=== PATIENT | male | born 1995 | race Two or more races ===

== ENCOUNTER → 2021-01-01 10:52 | Outpatient (BNVA) | payer MEDICARE, MEDICAID, SELFPAY | PROVIDERS: PCP Internal Medicine; Referring Provider Internal Medicine; Visit Provider Nurse Practitioner | DX: Z13.89 Encounter for screening for other disorder (principal) | CPT/HCPCS: Q3014 ==

== ENCOUNTER 2021-01-15 10:39 | Outpatient (REF) | payer MEDICARE, MEDICAID, SELFPAY ==
[2021-01-15 12:29] LABS: Creatinine Urine 299.66 mg/dL; Microalbum/Creatinine Ratio Ur 4.6 ug/mg cr
[2021-01-15 12:33] LABS: Alanine Aminotransferase 22 U/L (0-40); Albumin Level 4.1 g/dL (3.5-5.0); Alkaline Phosphatase 77 U/L (39-117); Anion Gap 12 (12-20); Aspartate Amino Transferase 17 U/L (5-37); Bilirubin Total 0.6 mg/dL (0.0-1.0); Blood Urea Nitrogen 13 mg/dL (9-16); Calcium 9.1 mg/dL (8.4-10.2); Carbon Dioxide 28 mmol/L (22-29); Chloride 101 mmol/L (96-108); Cholesterol 145 mg/dL; Estimated Glomerular Filt Rate > 60; Glucose Fasting 126 mg/dL (60-99); HDL Cholesterol 38 mg/dL; LDL Cholesterol Calculated 94 mg/dl; Potassium 4.8 mmol/L (3.3-5.1); Sodium 136 mmol/L (135-145); Triglycerides 68 mg/dL
[2021-01-15 13:01] LABS: Reflex LDLD? No
[2021-01-15 13:59] LABS: Estimated Average Glucose 148 mg/dL; Hemoglobin A1c % 6.8 %
== END 2021-01-15 10:40 | disposition home or self-care (01) ==
LOC: HO.10HDL 10:39
PROVIDERS: Absent Provider Nurse Practitioner Gerontology; Visit Provider Internal Medicine
DX: E11.9 Type 2 diabetes mellitus without complications (principal); E78.5 Hyperlipidemia, unspecified
CPT/HCPCS: 36415; 80053; 80061; 82043; 83036

== ENCOUNTER → 2021-01-18 14:09 | Outpatient (REF) | payer MEDICARE, MEDICAID, SELFPAY ==
--- NOTE | 2021-01-18 14:16 | ECG_ITS ---
Test Reason : HIGH RISK MEDICATION Blood Pressure : / mmHG Vent. Rate : 078 BPM Atrial Rate : 078 BPM P-R Int : 186 ms QRS Dur : 080 ms QT Int : 342 ms P-R-T Axes : 058 077 041 degrees QTc Int : 389 ms Normal sinus rhythm Normal ECG When compared to the previous EKG of No significant changes seen Referred By: Vipin Morgan Electronically Signed By:PRIETO AUSTIN MD
== END ==
LOC: HO.CARD 14:09
PROVIDERS: PCP Internal Medicine; Visit Provider Psychiatry & Neurology Child & Adolescent Psychiatry
DX: Z79.899 Other long term (current) drug therapy (principal)
CPT/HCPCS: 93005

== ENCOUNTER → 2021-01-22 10:05 | Outpatient (BNVA) | payer MEDICARE, MEDICAID, SELFPAY | PROVIDERS: PCP Internal Medicine; Visit Provider Nurse Practitioner Gerontology | DX: E11.9 Type 2 diabetes mellitus without complications (principal); E66.01 Morbid (severe) obesity due to excess calories; I10 Essential (primary) hypertension | CPT/HCPCS: 82947; 99212 ==

== ENCOUNTER → 2021-04-17 09:58 | Outpatient (BNVA) | payer MEDICARE, MEDICAID, SELFPAY | PROVIDERS: PCP Internal Medicine; Visit Provider Dietitian, Registered | DX: E11.9 Type 2 diabetes mellitus without complications (principal) | CPT/HCPCS: 97803 ==

== ENCOUNTER → 2021-06-18 10:41 | Outpatient (BNVA) | payer MEDICARE, MEDICAID, SELFPAY | PROVIDERS: PCP Internal Medicine; Visit Provider Dietitian, Registered | DX: E11.9 Type 2 diabetes mellitus without complications (principal) | CPT/HCPCS: 97803 ==

== ENCOUNTER → 2021-07-25 10:17 | Outpatient (BNVA) | payer MEDICARE, MEDICAID, SELFPAY | PROVIDERS: PCP Internal Medicine; Visit Provider Nurse Practitioner Gerontology | DX: E11.9 Type 2 diabetes mellitus without complications (principal); I10 Essential (primary) hypertension; E66.01 Morbid (severe) obesity due to excess calories; Z68.42 Body mass index [BMI] 45.0-49.9, adult | CPT/HCPCS: 82947; 83036; 99212 ==

== ENCOUNTER → 2021-09-18 10:26 | Outpatient (BNVA) | payer MEDICARE, MEDICAID, SELFPAY | PROVIDERS: PCP Internal Medicine; Visit Provider Dietitian, Registered | DX: E11.9 Type 2 diabetes mellitus without complications (principal); I10 Essential (primary) hypertension; E78.00 Pure hypercholesterolemia, unspecified; E66.09 Other obesity due to excess calories; Z68.42 Body mass index [BMI] 45.0-49.9, adult; Z88.2 Allergy status to sulfonamides; Z88.8 Allergy status to other drugs, medicaments and biological substances; Z91.011 Allergy to milk products; Z71.3 Dietary counseling and surveillance | CPT/HCPCS: 97803 ==

== ENCOUNTER 2021-11-14 14:18 | Outpatient (REF) | payer MEDICARE, MEDICAID, SELFPAY ==
--- NOTE | 2021-11-14 15:24 | MHC.AU.MED ---
Medical Clearance for Hearing Instrumentation Date: 11/14/21 Patient Name: Paul Monk Date of : 1995 Referring Provider: EDMOND Clark We have seen your patient on 11/14/21 and have determined that they are a candidate for amplification (See accompanying report). Specifically, they would benefit from: Hearing aid use in both ears There is a statute that addresses Medical Evaluation Requirements prior to fitting a patient with a hearing aid. According to [place] statute 265 CMR:6.03(1), (a) General. Except as provided in 265 CMR 6.03(1)(b), a musical therapist shall not sell a hearing aid unless the prospective user has presented to the musical therapist a written statement signed by a licensed physician that states that the patient's hearing loss has been medically evaluated and the patient may be considered a candidate for a hearing aid. The medical evaluation must have taken place within the preceding six months. Please note: Due to the [place] Statute referenced above, we cannot accept a signature other than that of a licensed physician. PATIENT CARE ASSISTANT and PA signatures cannot be accepted. I am in agreement with the above recommendation. There is no medical contraindication for hearing instrumentation. Physician Signature Date Physician Name (Printed)
--- NOTE | 2021-11-14 15:25 | MHC.AU.AHA ---
Adult Audiological Evaluation Date of Visit: 11/14/21 Reason for Appointment: History of mild to moderate sensorineural hearing loss. Patient arrives today to determine if there has been a change in hearing. Patient reports that his hearing aids were recently lost. Previous Hearing Test Results: At this clinic in 2016- Mild to moderate sensorineural hearing loss bilaterally Ear History: Ear Deformity: None Reported Recent Ear Drainage: None Reported Recent Ear Pain: Both Ears Family History of Hearing Loss?: No Recent Ear Infections: None Reported Ear Infections in Childhood: Both Ears History of Ear Wax Buildup: None Reported Previous Ear Surgery: None Reported Ear used on the phone: Right Ear History of occupational noise exposure?: No History: No Medical History: Medical History: Hypertension, Diabetes, Asthma, Autism Spectrum Disorder, Bipolar Disorder, ADHD Otoscopy: Right Ear: Unremarkable Left Ear: Unremarkable Tympanometry: Tympanometry performed due to: To assess integrity of the middle ear system Right Ear: Positive Middle Ear Pressure, with Normal Compliance Left Ear: Normal Middle Ear System (Type A) Hearing Evaluation: Transducer(s) Used: Insert Earphones Method: Conventional Audiometry Stimuli Used: Pure Tones Right Ear: Description of Hearing: Mild to moderate sensorineural hearing loss Left Ear: Description of Hearing: Mild to moderate sensorineural hearing loss Speech Recognition Threshold (SRT): Method Used: Recorded Lists Stimuli Used: Spondee Words Right Ear: 35 dBHL Left Ear: 35 dBHL Word Discrimination: Method: Recorded Lists Word Lists Used: W-22 Right Ear: 100% at 75 dBHL Left Ear: 96% at 75 dBHL Most Comfortable Level (MCL): Right Ear: 75 dBHL Left Ear: 75 dBHL Comparison: Compared to the most recent evaluation: Thresholds have decreased bilaterally. Interpretation of Results: Mild to moderate sensorineural hearing loss bilaterally. Hearing has slightly decreased since last evaluation in 2016. In the right ear, positive middle ear pressure is present. Recommendations: Audiological re-evaluation in one year. See Hearing Aid Evaluation report for more information. Follow-up with PCP may be warranted to address positive middle ear pressure in the right ear. Diagnosis: Primary Diagnosis: H90.3 Bilateral Sensorineural Hearing Loss Signature: Provider: Selvin Dumont, [facility]
--- NOTE | 2021-11-14 15:30 | MHC.AU.HAS ---
Hearing Aid Evaluation Date of Visit: 11/14/21 Historical Information: Description of Hearing: Mild to moderate sensorineural hearing loss bilaterally Summary: Patient was seen for audiological evaluation (see separate report for details). He previously used a pair of Phonak Audeo B50-R, dispensed in 2016. Patient reports that the hearing aids were recently lost. Hearing aid options were discussed. Patient would like to stay with a rechargeable model for ease of use. Hearing Aid Prescription: Based on the individual?s shared listening needs, communication environments, dexterity, desire for connectivity, and personal preferences, the following prescription for amplification has been made: Right ear: Pot Room Tapper: Phonak Model: Audeo P70-R Battery Size: Rechargeable Color: P8 Manager Cosmetics: 0M Left ear: Pot Room Tapper: Phonak Model: Audeo P70-R Battery Size: Rechargeable Color: P8 Manager Cosmetics: 0M Action Taken/Action Needed: Medical Clearance to be requested from PCP/ENT Patient will be contacted to schedule hearing aid fitting when all materials have arrived. Primary Diagnosis: H90.3 Bilateral Sensorineural Hearing Loss Signature: Provider: Selvin Dumont, [facility]
== END 2021-11-14 14:19 | disposition home or self-care (01) ==
LOC: HO.SH 14:18
PROVIDERS: Visit Provider Nurse Practitioner Family
DX: H90.3 Sensorineural hearing loss, bilateral (principal)
CPT/HCPCS: 92557; 92567; 92591

== ENCOUNTER 2021-12-06 10:39 | Outpatient (REF) | payer MEDICARE, MEDICAID, SELFPAY ==
--- NOTE | 2021-12-06 11:26 | MHC.AU.HFA ---
Hearing Instrument Fitting- Adult- Binaural Date of Visit: 12/06/21 Hearing Instruments Dispensed: Right Ear: Hairspring Cutter: Phonak Model: Audeo P70-R Serial Number: [id number] Repair Warranty: 02/16/2025 Loss and Damage Warranty: 02/16/2025 Service Plan: 12/06/2022 Battery Size: Rechargeable Color: P8 Tar Distributor Operator: 0M Type of Dome: Small Open Type of Wax Guard: CeruShield Left Ear: Hairspring Cutter: Phonak Model: Audeo P70-R Serial Number: [id number] Repair Warranty: 02/16/2025 Loss and Damage Warranty: 02/16/2025 Service Plan: 12/06/2022 Battery Size: Rechargeable Color: P8 Tar Distributor Operator: 0M Type of Dome: Small Open Type of Wax Guard: CeruShield Summary of Fitting: Feedback servicing manager run. Verifit performed and levels adjusted to better reach targets. Target gain at 100%. Patient was pleased with the sound of the instruments. Hearing aid care and maintenance discussed and practiced. Hearing aids paired to patient's phone and rodger. Recommendations: Recommendations: Patient is an experienced hearing aid user. He will call if follow-up is needed. Diagnosis Code(s): Primary Diagnosis: H90.3 Bilateral Sensorineural Hearing Loss Signature: Provider: Selvin Dumont, [facility]
== END 2021-12-06 10:40 | disposition home or self-care (01) ==
LOC: HO.HAP 10:39
PROVIDERS: Visit Provider Internal Medicine
DX: Z46.1 Encounter for fitting and adjustment of hearing aid (principal); H90.3 Sensorineural hearing loss, bilateral
CPT/HCPCS: V5011; V5020; V5160; V5261

== ENCOUNTER → 2022-01-04 11:55 | Outpatient (BNVA) | payer MEDICARE, MEDICAID, SELFPAY | PROVIDERS: PCP Internal Medicine; Visit Provider Nurse Practitioner | DX: K64.9 Unspecified hemorrhoids (principal); K59.04 Chronic idiopathic constipation; F84.0 Autistic disorder | CPT/HCPCS: 99212 ==

== ENCOUNTER 2022-01-10 08:01 | Outpatient (REF) | payer MEDICARE, MEDICAID, SELFPAY ==
[2022-01-10 08:21] LABS: MANUAL DIFF FLAG NO
[2022-01-10 08:47] LABS: Basophils Percent Auto 0.4 % (0-2); Eosinophils Absolute Auto 0.2 X10*3/uL (0.0-0.4); Eosinophils Percent Auto 1.6 % (0-4); Hematocrit 39.2 % (42.0-52.0); Hemoglobin 11.7 g/dl (14.0-18.0); Imm Gran Abs Auto 0.04 X10*3/uL (0.00-0.03); Imm Gran Pct Auto 0.4 % (0.0-0.4); Lymphocytes Absolute Auto 2.6 X10*3/uL (1.2-4.9); Lymphocytes Percent Auto 23.3 % (20-40); Mean Corpuscular HGB Conc 29.8 g/dl (31.0-36.0); Mean Corpuscular Hemoglobin 22.9 pg (27.0-33.0); Mean Corpuscular Volume 76.9 fL (80.0-98.0); Mean Platelet Volume 10.3 fL (9.4-12.4); Monocytes Absolute Auto 0.8 X10*3/uL (0.1-1.2); Monocytes Percent Auto 7.4 % (2-11); Neutrophils Absolute Auto 7.3 x10*3/uL (2.0-8.3); Neutrophils Percent Auto 66.9 % (45-73); Platelet Count 283 X10*3/uL (160-400); Red Cell Distribution Width 16.3 % (11.0-16.0)
[2022-01-10 08:58] LABS: INTERNATIONAL NORM RATIO 1.1 (0.9-1.1); Prothrombin Time 12.5 SEC (9.9-13.0)
[2022-01-10 10:06] LABS: Microalbum/Creatinine Ratio Ur 6.1 ug/mg cr
[2022-01-10 10:28] LABS: Alanine Aminotransferase 17 U/L (0-40); Albumin Level 4.2 g/dL (3.5-5.0); Alkaline Phosphatase 68 U/L (39-117); Anion Gap 14 (12-20); Aspartate Amino Transferase 18 U/L (5-37); Bilirubin Total 0.5 mg/dL (0.0-1.0); Blood Urea Nitrogen 13 mg/dL (9-16); Calcium 10.3 mg/dL (8.4-10.2); Carbon Dioxide 29 mmol/L (22-29); Chloride 102 mmol/L (96-108); Cholesterol 145 mg/dL; Estimated Glomerular Filt Rate > 60; Glucose Fasting 94 mg/dL (60-99); HDL Cholesterol 44 mg/dL; Iron 33 mcg/dL (45-160); LDL Cholesterol Calculated 91 mg/dl; Percent Iron Saturation 7 % (15-50); Potassium 4.9 mmol/L (3.3-5.1); Sodium 140 mmol/L (135-145); Total Iron Binding Capacity 444 mcg/dL (228-428); Total Protein 7.8 g/dL (6.5-8.0); Triglycerides 53 mg/dL; Unsaturated Iron Binding 411 ug/dL
[2022-01-10 10:29] LABS: Vitamin B12 679 pg/mL (200-900)
== END 2022-01-10 08:02 | disposition home or self-care (01) ==
LOC: HO.LAB 08:01
PROVIDERS: Absent Provider Internal Medicine; PCP Internal Medicine; Visit Provider Nurse Practitioner Gerontology
DX: R04.0 Epistaxis (principal); D64.9 Anemia, unspecified; E11.9 Type 2 diabetes mellitus without complications
CPT/HCPCS: 36415; 80053; 80061; 82043; 82607; 83540; 85025; 85610; 85730

== ENCOUNTER → 2022-01-21 12:55 | Outpatient (BNVA) | payer MEDICARE, MEDICAID, SELFPAY | PROVIDERS: PCP Internal Medicine; Referring Provider Internal Medicine; Visit Provider Nurse Practitioner | DX: K59.04 Chronic idiopathic constipation (principal); K64.9 Unspecified hemorrhoids; F84.0 Autistic disorder; Z88.2 Allergy status to sulfonamides; Z88.8 Allergy status to other drugs, medicaments and biological substances; Z91.011 Allergy to milk products | CPT/HCPCS: 99212 ==

== ENCOUNTER → 2022-01-23 10:13 | Outpatient (BNVA) | payer MEDICARE, MEDICAID, SELFPAY | PROVIDERS: PCP Internal Medicine; Visit Provider Nurse Practitioner Gerontology | DX: E11.9 Type 2 diabetes mellitus without complications (principal); I10 Essential (primary) hypertension; E66.01 Morbid (severe) obesity due to excess calories; Z68.41 Body mass index [BMI] 40.0-44.9, adult | CPT/HCPCS: 82947; 83036; 99212 ==

== ENCOUNTER 2022-01-28 10:43 | Emergency (ER) | payer MEDICARE, MEDICAID, SELFPAY ==
--- NOTE | ~2022-01-28 | XR_ITS ---
EXAMINATION: XR ABDOMEN KUB CLINICAL INDICATION: Constipation COMPARISON: None TECHNIQUE: AP view of the abdomen. FINDINGS: There is stool seen throughout the colon suggestive of constipation. There are no dilated loops of bowel. There is no evidence of free air. No calcifications are seen. There is sacralization of the right L5 transverse process. XR/XR KUB IMPRESSION: Constipation.
[2022-01-28 11:30] VITALS: BP 126/78; PULSE 107; RESP 16; TEMP 37.1; O2SAT 97; BMI 42.9
--- NOTE | 2022-01-28 15:05 | ED.GENADULT ---
HPI - General Adult General Chief complaint: General Medical Stated complaint: CONSTIPATION Time Seen by Provider: 01/28/22 14:59 Source: patient and other (care home staff) Mode of arrival: ambulatory Limitations: no limitations History of Present Illness HPI narrative: Patient comes to the emergency room complaining of constipation. Patient states that he has not moved his bowels for 5 days. Patient is already on senna, MiraLax. Patient denies any abdominal pain, patient states he feels more like rectal pressure, no pain. Patient also states that he has had some rectal bleeding when he wipes after pushing hard trying to move his bowels. Patient states that he has history of hemorrhoids Related Data Home Medications Medication Instructions Recorded Confirmed haloperidol 10 mg tablet 10 mg PO BID 08/23/20 01/08/22 fluoxetine 40 mg capsule 40 mg PO cap 01/22/21 01/08/22 benztropine 0.5 mg tablet 0.5 mg PO BID 10/19/21 01/08/22 divalproex 500 mg tablet,delayed 1,000 mg PO QID 10/19/21 01/08/22 release (Depakote) divalproex 500 mg tablet,delayed 500 mg PO QID tab 10/19/21 01/08/22 release (Depakote) lithium carbonate 150 mg capsule 450 mg PO BID cap 10/19/21 01/08/22 Previous Rx's Medication Instructions Recorded atorvastatin 20 mg tablet 20 mg PO DAILY 90 Days #90 tab 07/04/21 sitagliptin 100 mg tablet (Januvia) 100 mg PO DAILY #30 tab 08/21/21 acetaminophen 500 mg tablet 1,000 mg PO Q6H PRN 30 Days #30 tab 10/10/21 albuterol sulfate 90 mcg/actuation 2 puff INHALATION Q6H PRN 30 Days 10/10/21 aerosol inhaler #6.7 g dextromethorphan-guaifenesin 20 1 tab PO Q6H PRN 30 Days #50 tab 10/10/21 mg-400 mg tablet (Chest Congestion-Cough Relief) ibuprofen 600 mg tablet 600 mg PO TID PRN 30 Days #90 tab 10/10/21 ondansetron 4 mg disintegrating 4 mg PO Q8H PRN 30 Days #90 tab 10/10/21 tablet ferrous sulfate 325 mg (65 mg 325 mg PO BID 30 Days #60 tab 12/11/21 iron) tablet lisinopril 5 mg tablet 5 mg PO QAM #30 tab 12/11/21 metformin 500 mg tablet,extended 1,000 mg PO DAILY 30 Days #60 tab 12/11/21 release 24 hr oxymetazoline 0.05 % nasal mist 2 spray INTRANASAL BID PRN 3 Days 12/11/21 (Afrin (oxymetazoline)) #15 ml montelukast 10 mg tablet 10 mg PO BEDTIME #30 tab 12/25/21 docusate sodium 100 mg capsule 100 mg PO BID #60 cap 12/27/21 sennosides 8.6 mg tablet (Natural 17.2 mg PO DAILY PRN 30 Days #60 12/27/21 Senna Laxative) tab doxycycline hyclate 100 mg tablet 100 mg PO BID 7 Days #14 tab 01/08/22 fluticasone propionate 50 1 spray INTRANASAL DAILY #100 ml 01/08/22 mcg/actuation nasal spray,suspension (Flonase Allergy Relief) hydrocortisone 2.5 % topical cream 1 appl WA TID #30 g 01/21/22 with perineal applicator linaclotide 145 mcg capsule 145 mcg PO QAM #30 cap 01/21/22 (Linzess) polyethylene glycol 3350 17 17 g PO .qhs PRN 30 Days #510 g 01/21/22 gram/dose oral powder (Miralax) blood sugar diagnostic (Contour 1 strip MISCELLANEOUS BID #100 01/22/22 Next Test Strips) strip lancets 28 gauge (TRUEplus Lancets) 1 gauge MISCELLANEOUS BID #100 cap 01/22/22 lactulose 10 gram/15 mL (15 mL) 10 g (15 mL) PO DAILY PRN #600 ml 01/28/22 oral solution Allergies Allergy/AdvReac Type Severity Reaction Status Date / Time sulfamethoxazole Allergy Mild Hives Verified 01/23/22 10:25 [From Septra] amphetamine [From ADDERALL] Allergy Unknown UNKNOWN Verified 01/23/22 10:25 dextroamphetamine Allergy Unknown UNKNOWN Verified 01/23/22 10:25 [From ADDERALL] lactose [LACTOSE] Allergy Unknown UNKNOWN Verified 01/23/22 10:25 sertraline [From ZOLOFT] Allergy Unknown UNKNOWN Verified 01/23/22 10:25 Sulfa (Sulfonamide Allergy Unknown hives Verified 01/23/22 10:25 Antibiotics) [SULFA(SULFONAMIDE ANTIBIOTICS)] trimethoprim [From BACTRIM] Allergy Unknown UNKNOWN Verified 01/23/22 10:25 Review of Systems Review of Systems: Constitutional : No Weight loss, No Fever, No Chills, No Night Sweats, No Fatigue, No Malaise ENT/Mouth : No Hearing loss, No Ear Pain, No Nasal Congestion, No Sinus Pain, No Hoarseness, No sore throat, No Rhinorrhea, No Swallowing Difficulty Eyes: No Eye Pain, No Swelling, No Redness, No Foreign Body, No Discharge, No Vision Changes Cardiovascular : No Chest Pain, No SOB, No Dyspnea on Exertion, No Orthopnea, No Edema, No Palpitations Respiratory : No Cough, No Sputum, No Wheezing, No Smoke Exposure, No Dyspnea Gastrointestinal : No Nausea, No Vomiting, No Diarrhea, complaining of chronic Constipation, occasional external hemorrhoid bleed, No abdominal Pain, No Hematochezia, No Melena Genitourinary : no irregular bleeding, No Dysuria, No Urinary Frequency, No Hematuria, No Urinary Incontinence, No Urgency, No Flank Pain, No Urinary Flow Changes, No Hesitancy Musculoskeletal : No joint pain, No Myalgias, No Joint Swelling Skin : No Skin Lesions, No rash Neuro : No Weakness, No Numbness, No Paresthesias, No Loss of Consciousness, No Dizziness, No Headache Psych : No Anxiety/Panic, No Depression, No SI/HI/AH/VH, No Social Issues, Heme/Lymph: No Bruising, No Bleeding,No Lymphadenopathy Endocrine : No Polyuria, No Polydipsia, No Temperature Intolerance PMFSH Past Medical History Medical History Constipation by delayed colonic transit Controlled diabetes mellitus without complication, without long-term current use of insulin Diabetes mellitus type 2, controlled, without complications Essential hypertension Male circumcision Nosebleed Obesity due to excess calories Pure hypercholesterolemia Surgical History History of appendectomy Hx of circumcision (~2020) Family History Family History Father No problems noted. Mother Asthma Depression Anxiety Heart problem Maternal Grandmother Diabetes Hypertension Family/Other FH: mental illness Social History Social History Household Members: Other Housing: Other (care home) Alcohol intake: never Patient Tobacco Use Status: Never used Tobacco e-Cigarette/Vaping Use: Never Used Second Hand Smoke Exposure: No Advance Directives: No Advance Directives Information Provided: No service: No Current occupational status: disabled Cognitive needs: No Hearing needs: Yes (hearing aide) Vision needs: Yes (glasses) Physical Exam ED Vital Signs: Vital Signs - 24 hr 01/28/22 11:30 01/28/22 15:06 Temperature 98.7 F 97.7 F Pulse Rate 107 H 103 H Respiratory Rate 16 22 H Blood Pressure 126/78 135/87 Pulse Oximetry 97 97 BMI result Body Mass Index 42.9 Course Course Course Narrative: Patient is well-appearing, KUB shows constipation. Patient will be given a prescription for lactulose since he already has tried multiple medications for constipation without any good results. Medical Decision Making Lab Data Labs: Lab Results 01/28/22 Range/Units 15:03 POC Glucose 128 H (60-115) mg/dL Discharge Plan Discharge Clinical Impression: Constipation Patient Disposition: Home, Self-Care Instructions: Constipation (ED) Additional Instructions: Please follow-up with your primary care physician tomorrow. If you have any worsening or new symptoms, please return to the emergency room or call 911 Prescriptions: New lactulose 10 gram/15 mL (15 mL) solution 10 g PO DAILY PRN (Reason: constipation) Qty: 600 0RF No Action atorvastatin 20 mg tablet 20 mg PO DAILY 90 Days Qty: 90 4RF Januvia 100 mg tablet 100 mg PO DAILY Qty: 30 4RF albuterol sulfate 90 mcg/actuation HFA aerosol inhaler 2 puff inhalation Q6H PRN (Reason: shortness of breath or wheezing) 30 Days Qty: 6.7 8RF acetaminophen 500 mg tablet 1,000 mg PO Q6H PRN (Reason: pain or fever) 30 Days Qty: 30 11RF ibuprofen 600 mg tablet 600 mg PO TID PRN (Reason: pain) 30 Days Qty: 90 11RF ondansetron 4 mg tablet,disintegrating 4 mg PO Q8H PRN (Reason: nausea and vomiting) 30 Days Qty: 90 0RF dextromethorphan-guaifenesin [Chest Congestion-Cough Relief] 20-400 mg tablet 1 tab PO Q6H PRN (Reason: cough) 30 Days Qty: 50 8RF montelukast 10 mg tablet 10 mg PO BEDTIME Qty: 30 5RF sennosides [Natural Senna Laxative] 8.6 mg tablet 17.2 mg PO DAILY PRN (Reason: constipation) 30 Days Qty: 60 4RF docusate sodium 100 mg capsule 100 mg PO BID Qty: 60 4RF Contour Next Test Strips Strip 1 strip miscellaneous BID Qty: 100 11RF lancets [TRUEplus Lancets] 28 gauge misc 1 gauge miscellaneous BID Qty: 100 11RF haloperidol 10 mg tablet 10 mg PO BID 0RF fluoxetine 40 mg capsule 40 mg PO 0RF benztropine 0.5 mg tablet 0.5 mg PO BID 0RF lithium carbonate 150 mg capsule 450 mg PO BID 0RF divalproex [Depakote] 500 mg tablet,delayed release (DR/EC) 500 mg PO QID 0RF divalproex [Depakote] 500 mg tablet,delayed release (DR/EC) 1,000 mg PO QID 0RF Rx Instructions: Pt is on Depakote 1,000 mg at bedtime and Depakote 500 mg in the AM lisinopril 5 mg tablet 5 mg PO QAM Qty: 30 1RF metformin 500 mg tablet extended release 24 hr 1,000 mg PO DAILY 30 Days Qty: 60 1RF ferrous sulfate 325 mg (65 mg iron) tablet 325 mg PO BID 30 Days Qty: 60 1RF Afrin (oxymetazoline) 0.05 % mist 2 spray intranasal BID PRN (Reason: nasal congestion) 3 Days Qty: 15 0RF fluticasone propionate [Flonase Allergy Relief] 50 mcg/actuation spray,suspension 1 spray intranasal DAILY Qty: 100 0RF Rx Instructions: administer into each nostril doxycycline hyclate 100 mg tablet 100 mg PO BID 7 Days Qty: 14 0RF Linzess 145 mcg capsule 145 mcg PO QAM Qty: 30 6RF polyethylene glycol 3350 [Miralax] 17 gram/dose powder 17 g PO .qhs PRN (Reason: constipation) 30 Days Qty: 510 6RF Rx Instructions: Mix Polyethylene with any 4-8oz of fluid until completely dissolved and then administer. Administer if no BM for 72 hours 17g in water and may repeat x2 in 24 hours. If no BM in 7 days contact prescriber hydrocortisone 2.5 % cream with perineal applicator 1 appl WA TID Qty: 30 6RF
[2022-01-28 15:06] VITALS: BP 135/87; PULSE 103; RESP 22; TEMP 36.5; O2SAT 97
[2022-01-28 15:11] LABS: Glucose, Whole Blood 128 mg/dL (60-115)
== END 2022-01-28 16:35 | disposition home or self-care (01) ==
PROVIDERS: Emergency Provider Emergency Medicine; PCP Internal Medicine
DX: K59.00 Constipation, unspecified (principal); E11.9 Type 2 diabetes mellitus without complications; I10 Essential (primary) hypertension; E78.5 Hyperlipidemia, unspecified; Z79.899 Other long term (current) drug therapy; Z79.02 Long term (current) use of antithrombotics/antiplatelets
CPT/HCPCS: 74018; 82947; 99283

== ENCOUNTER → 2022-03-21 16:17 | Outpatient (BNVA) | payer MEDICARE, MEDICAID, SELFPAY | PROVIDERS: PCP Internal Medicine; Referring Provider Internal Medicine; Visit Provider Nurse Practitioner | DX: K59.04 Chronic idiopathic constipation (principal); K61.1 Rectal abscess | CPT/HCPCS: 99212 ==

== ENCOUNTER → 2022-03-27 15:24 | Outpatient (BNVA) | payer MEDICARE, MEDICAID, SELFPAY | PROVIDERS: PCP Internal Medicine; Referring Provider Internal Medicine; Visit Provider Surgery | DX: K61.0 Anal abscess (principal) | CPT/HCPCS: 99202 ==

== ENCOUNTER → 2022-04-08 16:35 | Outpatient (BNVA) | payer MEDICARE, MEDICAID, SELFPAY | PROVIDERS: PCP Internal Medicine; Visit Provider Nurse Practitioner | DX: K61.0 Anal abscess (principal); K59.04 Chronic idiopathic constipation; R15.9 Full incontinence of feces | CPT/HCPCS: 99212 ==

== ENCOUNTER 2022-04-26 11:00 | Day surgery (SDC) | payer MEDICARE, MEDICAID, SELFPAY ==
[2022-04-18 15:23] VITALS: BMI 41.3
--- NOTE | 2022-04-24 14:53 | HO.ANESPROP2 ---
Documented by User: Lashonda Lala NP 04/24/22 14:56 HPI - Anesthesia Eval Consult details Narrative: 26yo M for EUA,I&D Perianal Abscess *Multiple Med Allergies* care home resident [facility] Active Problems Active Problems: All Active Problems (Updated 04/18/22 @ 14:30 by Shea Carbajal RN) Pure hypercholesterolemia (Acute) Hemorrhoids (Acute) Diabetes mellitus type 2, controlled, without complications (Acute) Bleeding hemorrhoids (Acute) Bipolar disorder (Acute) History of impulsive behavior (Acute) ADHD (Acute) Asthma (Acute) Autism (Acute) HTN (hypertension), benign (Acute) Essential hypertension (Acute) Controlled diabetes mellitus without complication, without long-term current use of insulin (Acute) Vomiting (Acute) Obesity due to excess calories (Acute) Nosebleed (Acute) Epistaxis (Acute) Hearing loss (Acute) Physical exam (Acute ~10/19/21) Epistaxis (Acute) Chronic idiopathic constipation (Acute) Rhinitis (Acute) Ingrown toenail of both feet (Acute) Perirectal abscess (Acute) Bipolar disorder (Acute) Psychosis (Acute) Perianal abscess (Acute) Fecal incontinence (Acute) Past Medical History Medical History ADHD Asthma Autism Bipolar disorder Chronic idiopathic constipation Diabetes mellitus type 2, controlled, without complications Essential hypertension Lives in senior living Male circumcision Pure hypercholesterolemia Family History Family History Father No problems noted. Mother Asthma Depression Anxiety Heart problem Maternal Grandmother Diabetes Hypertension Family/Other FH: mental illness Surgical History Surgical History History of appendectomy Hx of circumcision (~2020) Social History Social History Household Members: Other Household Members Other:: senior living residents/staff Housing: Other Are you a primary field care coordinator to a significant other at home: No Do you presently have visiting nurse or other home services: No Alcohol intake: never Patient Tobacco Use Status: Never used Tobacco e-Cigarette/Vaping Use: Never Used Second Hand Smoke Exposure: No Use of substances other than those prescribed or required for medical reasons: No Are you DNR?: No Advance Directives: No Advance Directives Information Provided: Yes (brochure mailed) Advance Directives on File: No Recently lost weight without trying: No Eating poorly because of decreased appetite: No Nutrition Risks: No Nutritional Risk service: No Current occupational status: disabled Cognitive needs: No Hearing needs: Yes (hearing aide) Vision needs: Yes (glasses) Meds Allergies Allergy/AdvReac Type Severity Reaction Status Date / Time Sulfa (Sulfonamide Allergy Intermediate hives Verified 04/18/22 10:35 Antibiotics) [SULFA(SULFONAMIDE ANTIBIOTICS)] trimethoprim [From BACTRIM] Allergy Intermediate Hives Verified 04/18/22 10:35 amphetamine [From ADDERALL] Allergy Unknown UNKNOWN Verified 04/08/22 16:41 dextroamphetamine Allergy Unknown UNKNOWN Verified 04/08/22 16:41 [From ADDERALL] lactose [LACTOSE] Allergy Unknown UNKNOWN Verified 04/08/22 16:41 sertraline [From ZOLOFT] Allergy Unknown UNKNOWN Verified 04/08/22 16:41 Home Medications Medication Instructions Recorded Confirmed Last Taken Type haloperidol 10 mg tablet 10 mg PO BID 08/23/20 04/18/22 Unknown History fluoxetine 40 mg capsule 40 mg PO DAILY 01/22/21 04/18/22 Unknown History benztropine 0.5 mg tablet 0.5 mg PO BID 10/19/21 04/18/22 Unknown History divalproex 500 mg tablet,delayed 1,000 mg PO QID 10/19/21 04/18/22 Unknown History release (Depakote) divalproex 500 mg tablet,delayed 500 mg PO QID 10/19/21 04/18/22 Unknown History release (Depakote) lithium carbonate 150 mg capsule 450 mg PO BID 10/19/21 04/18/22 Unknown History Exam Exam Date and Time: April 24, 2022 1453 Height,Weight and Vital Signs: Height 5 ft 6 in Weight 116 kg Pertinent Lab Results Pertinent Lab Results: Laboratory Tests 01/10/22 01/10/22 08:20 08:20 WBC 11.0 H Hgb 11.7 L Hct 39.2 L Plt Count 283 Sodium 140 Potassium 4.9 Chloride 102 Carbon Dioxide 29 BUN 13 Creatinine 0.81 Assessment and Plan Assessment Anesthesia Assessment: Chart Reviewed Documented by User: Ana Cummings MD 04/26/22 12:24 PMF Past Medical History Medical History ADHD Asthma Autism Bipolar disorder Chronic idiopathic constipation Diabetes mellitus type 2, controlled, without complications Essential hypertension Lives in senior living Male circumcision Pure hypercholesterolemia Functional capacity: independent ambulation Family History Family History Father No problems noted. Mother Asthma Depression Anxiety Heart problem Maternal Grandmother Diabetes Hypertension Family/Other FH: mental illness Family history of problems with anesthesia: No Surgical History Surgical History History of appendectomy Hx of circumcision (~2020) History of Problems with Anesthesia: No Social History Social History Household Members: Other Household Members Other:: senior living residents/staff Housing: Other Are you a primary field care coordinator to a significant other at home: No Do you presently have visiting nurse or other home services: No Alcohol intake: never Patient Tobacco Use Status: Never used Tobacco e-Cigarette/Vaping Use: Never Used Second Hand Smoke Exposure: No Use of substances other than those prescribed or required for medical reasons: No Are you DNR?: No Advance Directives: No Advance Directives Information Provided: Yes (brochure mailed) Advance Directives on File: No Recently lost weight without trying: No Eating poorly because of decreased appetite: No Nutrition Risks: No Nutritional Risk service: No Current occupational status: disabled Cognitive needs: No Hearing needs: Yes (hearing aide) Vision needs: Yes (glasses) Meds Allergies Allergy/AdvReac Type Severity Reaction Status Date / Time Sulfa (Sulfonamide Allergy Intermediate hives Verified 04/18/22 10:35 Antibiotics) [SULFA(SULFONAMIDE ANTIBIOTICS)] trimethoprim [From BACTRIM] Allergy Intermediate Hives Verified 04/18/22 10:35 amphetamine [From ADDERALL] Allergy Unknown UNKNOWN Verified 04/08/22 16:41 dextroamphetamine Allergy Unknown UNKNOWN Verified 04/08/22 16:41 [From ADDERALL] lactose [LACTOSE] Allergy Unknown UNKNOWN Verified 04/08/22 16:41 sertraline [From ZOLOFT] Allergy Unknown UNKNOWN Verified 04/08/22 16:41 Home Medications Medication Instructions Recorded Confirmed Last Taken Type haloperidol 10 mg tablet 10 mg PO BID 08/23/20 04/18/22 Unknown History fluoxetine 40 mg capsule 40 mg PO DAILY 01/22/21 04/18/22 Unknown History benztropine 0.5 mg tablet 0.5 mg PO BID 10/19/21 04/18/22 Unknown History divalproex 500 mg tablet,delayed 1,000 mg PO QID 10/19/21 04/18/22 Unknown History release (Depakote) divalproex 500 mg tablet,delayed 500 mg PO QID 10/19/21 04/18/22 Unknown History release (Depakote) lithium carbonate 150 mg capsule 450 mg PO BID 10/19/21 04/18/22 Unknown History Exam Airway Mallampati Class: III Assessment and Plan Final Anesthetic Review Family History of Problems with Anesthesia: No History of Problems with Anesthesia: No
[2022-04-26] VITALS (13 sets, daily range): BP systolic 100–138; BP diastolic 51–78; PULSE 68–93; RESP 16–20; TEMP 36.1–36.2; O2SAT 94–98
--- NOTE | 2022-04-26 | ECG_ITS ---
Test Reason : HTN DIABETES PREOP Blood Pressure : / mmHG Vent. Rate : 072 BPM Atrial Rate : 072 BPM P-R Int : 202 ms QRS Dur : 080 ms QT Int : 376 ms P-R-T Axes : 045 061 028 degrees QTc Int : 411 ms Normal sinus rhythm Normal ECG When compared with ECG of 18-JAN-2021 13:22, No significant change was found Referred By: Lashonda Lala Electronically Signed By:PRIETO AUSTIN MD
--- NOTE | 2022-04-26 12:45 | MHC.SHP ---
Pre-Procedural Eval Section A Date of Service: 04/26/22 The patient is an INPATIENT: No Changes since office visit: No Cold of Flu in the past 2 weeks, No New Medical Problems, No Changes in Medication and No Patient answered all questions The History & Physical has been completed within 30 days and I have reviewed it.: Yes Section B Chief Complaint: Anal abscess Allergies: Allergies Allergy/AdvReac Type Severity Reaction Status Date / Time Sulfa (Sulfonamide Allergy Intermediate hives Verified 04/26/22 12:30 Antibiotics) [SULFA(SULFONAMIDE ANTIBIOTICS)] trimethoprim [From BACTRIM] Allergy Intermediate Hives Verified 04/18/22 10:35 amphetamine [From ADDERALL] Allergy Unknown UNKNOWN Verified 04/08/22 16:41 dextroamphetamine Allergy Unknown UNKNOWN Verified 04/08/22 16:41 [From ADDERALL] lactose [LACTOSE] Allergy Unknown UNKNOWN Verified 04/08/22 16:41 sertraline [From ZOLOFT] Allergy Unknown UNKNOWN Verified 04/08/22 16:41 Plan I have reviewed the history and physical and performed a pertinent physical examination on my patient. No changes have occurred unless specified.
[2022-04-26] MEDS: Lactated Ringers 1,000 ML 100 ML IVCONT (13:02)
--- NOTE | 2022-04-26 13:54 | W.PM.OPN ---
Operative Note Operative Note Date of Service: 04/26/22 Narrative: Preop diagnosis: perianal abscess Postop diagnosis: Perianal abscess with interconnecting subcutaneous sinus, hypergranulation,no fistula to the anal canal, Procedure: EUA, I and D of perianal abscess, excisional debridement of hypergranulation tissue in cavity Surgeon: Solomon Hurtado MD The patient is a 26M seen in the office because of an area of drainage, swelling in the right perianal area. I recommended proceeding with EUA, I and D in the OR with possible seton. He understood the planned procedure as well as the risks, benefits and alternatives. He was brought to the OR and placed in prone jacknife position under general anesthesia via ET. The buttocks were retracted laterally with tape. The perianal area area was prepped and draped in the usual sterile fashion. A surgical timeout was done. The pt received Cefotan IV. Examination showed an area kust outside the anal verge with multiple sinuses, with drainage. I probed one of these with a hemostat and these sinuses appeared to be interconnectingin the subcutaneous layer. I opened up the area by unroofing this with electrocautery. A cavity with a lot of hypergranulation tissue was entered. I excised part of this and sent some tissue for pathlogy. I debrided the cavity with scissors and cautery and cauterized the entire area of thick hypergranulation to achieve hemostasis. I positioned the Betzaida-Parisi retractor toexamine the anal canal. I did not see any lesion in the anal canal. I did not see any internal sinus. I probed the cavity and explored this with palpation, and there did not appear to be a fisstulous connection to the anal canal. I debrided an area about 3x2 cm, and this was left open. Once hemostasis was ensured, I applied dry dressings and infiltrated the area with Marcaine .5% for postop analgesia. The procedure was completed.He tolerated the procedure well.EBL was about 25 cm. He was extubated and transferred to the with stable VS.. Initial and final counts of sponges and instruments were correct.
[2022-04-26 13:56] LABS: Glucose, Whole Blood 87 mg/dL (60-115)
[2022-04-26] MEDS: fentaNYL citrate/PF 100 MCG/2 ML VIAL 25 MCG IVPUSH ×2 (14:20→14:28)
[2022-04-26] MEDS: oxyCODONE HCl Immed Release 5 MG TABLET PO (14:25)
[2022-04-26] MEDS: Ketorolac Tromethamine 30 MG/ML VIAL IVPUSH (14:27)
== END 2022-04-26 16:08 | disposition home or self-care (01) ==
PROVIDERS: PCP Internal Medicine; Visit Provider Surgery
PROC: (CPT 46050; principal; 2022-04-26 13:50)
DX: K61.0 Anal abscess (principal); I10 Essential (primary) hypertension; E78.00 Pure hypercholesterolemia, unspecified; E11.9 Type 2 diabetes mellitus without complications; F31.9 Bipolar disorder, unspecified; E66.09 Other obesity due to excess calories; Z68.41 Body mass index [BMI] 40.0-44.9, adult; Z79.1 Long term (current) use of non-steroidal anti-inflammatories (NSAID); Z79.84 Long term (current) use of oral hypoglycemic drugs; Z79.899 Other long term (current) drug therapy; Z88.2 Allergy status to sulfonamides; Z88.8 Allergy status to other drugs, medicaments and biological substances
CPT/HCPCS: 46050; 82947; 88305; 93005; J0131; J1100; J1885; J2250; J2405; J3010

== ENCOUNTER → 2022-04-30 12:46 | Outpatient (BNVA) | payer MEDICARE, MEDICAID, SELFPAY | PROVIDERS: PCP Internal Medicine; Visit Provider Nurse Practitioner | DX: K59.04 Chronic idiopathic constipation (principal); K61.0 Anal abscess | CPT/HCPCS: 99212 ==

== ENCOUNTER → 2022-06-27 12:30 | Outpatient (BNVA) | payer MEDICARE, MEDICAID, SELFPAY | PROVIDERS: PCP Internal Medicine; Visit Provider Nurse Practitioner | DX: K59.01 Slow transit constipation (principal); K59.04 Chronic idiopathic constipation; K64.9 Unspecified hemorrhoids; K61.0 Anal abscess | CPT/HCPCS: 99212 ==

== ENCOUNTER → 2022-09-25 12:37 | Outpatient (BNVA) | payer MEDICARE, MEDICAID, SELFPAY | PROVIDERS: PCP Internal Medicine; Visit Provider Nurse Practitioner | DX: K59.04 Chronic idiopathic constipation (principal); K64.9 Unspecified hemorrhoids; K61.1 Rectal abscess | CPT/HCPCS: 99212 ==

== ENCOUNTER 2022-11-12 09:01 | Outpatient (REF) | payer MEDICARE, MEDICAID, SELFPAY | END 2022-11-12 09:02 | disposition home or self-care (01) | LOC: HO.HAP 09:01 | PROVIDERS: Visit Provider Internal Medicine | DX: Z13.89 Encounter for screening for other disorder (principal) ==

== ENCOUNTER → 2023-01-23 10:46 | Outpatient (BNVA) | payer MEDICARE, MEDICAID, SELFPAY | PROVIDERS: PCP Internal Medicine; Visit Provider Nurse Practitioner | DX: K59.04 Chronic idiopathic constipation (principal); K64.9 Unspecified hemorrhoids; K61.1 Rectal abscess | CPT/HCPCS: 99212 ==

== ENCOUNTER 2023-04-15 15:33 | Outpatient (REF) | payer MEDICARE, MEDICAID, SELFPAY | END 2023-04-15 15:34 | disposition home or self-care (01) | LOC: HO.HAP 15:33 | PROVIDERS: Visit Provider Internal Medicine | DX: Z13.89 Encounter for screening for other disorder (principal) ==

== ENCOUNTER 2023-04-18 15:10 | Outpatient (REF) | payer MEDICARE, MEDICAID, SELFPAY | END 2023-04-18 15:11 | disposition home or self-care (01) | LOC: HO.HAP 15:10 | PROVIDERS: Visit Provider Internal Medicine | DX: Z13.89 Encounter for screening for other disorder (principal) ==

== ENCOUNTER → 2023-05-05 14:34 | Outpatient (BNVA) | payer MEDICARE, MEDICAID, SELFPAY | PROVIDERS: PCP Internal Medicine; Visit Provider Surgery | DX: K62.5 Hemorrhage of anus and rectum (principal) | CPT/HCPCS: 99212 ==

== ENCOUNTER → 2023-05-08 12:13 | Outpatient (BNVA) | payer MEDICARE, MEDICAID, SELFPAY | PROVIDERS: PCP Internal Medicine; Visit Provider Nurse Practitioner | DX: K59.04 Chronic idiopathic constipation (principal); K64.9 Unspecified hemorrhoids; K61.1 Rectal abscess | CPT/HCPCS: 99212 ==

== ENCOUNTER 2023-05-20 11:22 | Outpatient (AMB) | payer MEDICARE, MEDICAID, SELFPAY ==
[2023-05-20 11:23] VITALS: BP 122/80; BMI 50.5
--- NOTE | 2023-05-20 11:23 | A.OFFPC_ITS ---
Vital Signs 05/20/23 11:23 Height 5 ft 4 in Weight 294 lb BMI 50.5 BP 122/80 Blood Pressure Location Lt brachial Position Sitting Intake Visit Reasons: dm Intake Note: Patient here a follow up DM Direct Support Professional Required: No Accompanied by: program worker Allergies Sulfa (Sulfonamide Antibiotics) [SULFA(SULFONAMIDE ANTIBIOTICS)] Allergy (Intermediate, Verified 05/20/23 11:35) hives trimethoprim [From BACTRIM] Allergy (Intermediate, Verified 05/20/23 11:35) Hives amphetamine [From ADDERALL] Allergy (Unknown, Verified 05/20/23 11:35) UNKNOWN dextroamphetamine [From ADDERALL] Allergy (Unknown, Verified 05/20/23 11:35) UNKNOWN lactose [LACTOSE] Allergy (Unknown, Verified 05/20/23 11:35) UNKNOWN sertraline [From ZOLOFT] Allergy (Unknown, Verified 05/20/23 11:35) UNKNOWN Medication List - Last Reconciled 05/20/23 by Kaitlin Domingo MD acetaminophen 1,000 mg (2 x 500 mg) PO Q6H PRN 30 days albuterol sulfate 90 mcg/actuation (Ventolin HFA) 2 puffs inhalation Q6H PRN atorvastatin 20 mg PO DAILY 90 days benztropine 0.5 mg PO BID blood sugar diagnostic (Contour Next Test Strips) 1 strip miscellaneous BID clonidine HCl 0.1 mg PO TID dextromethorphan-guaifenesin 20-400 mg (Chest Congestion-Cough Relief) 1 tab PO Q6H PRN 30 days diaper,brief,adult,disposable (Briefs, Adult-Extra Large) As directed divalproex (Depakote) 1,000 mg PO BEDTIME divalproex ER 500 mg PO TID docusate sodium 100 mg PO BID fluoxetine 40 mg PO DAILY fluticasone propionate 50 mcg/actuation (Flonase Allergy Relief) 1 spray intranasal DAILY folic acid 0.8 mg PO DAILY haloperidol 10 mg PO BEDTIME hydrocortisone 2.5% (Procto-Med HC) 1 appl OR TID hydrocortisone 2.5% (Proctosol HC) 1 appl OR BID PRN ibuprofen 600 mg PO TID PRN 30 days lactase (Lactaid Fast Act) 9,000 units PO QID PRN lancets (TRUEplus Lancets) 1 gauge miscellaneous BID linaclotide (Linzess) 145 mcg PO QAM lisinopril 5 mg PO QAM lithium carbonate ER 450 mg PO BID metformin ER 1,000 mg (2 x 500 mg) PO DAILY 30 days montelukast 10 mg PO BEDTIME ondansetron 4 mg PO Q8H PRN 30 days oxymetazoline 0.05% (Afrin (oxymetazoline)) 2 sprays intranasal BID PRN 3 days polyethylene glycol 3350 (Miralax) 17 grams PO .qhs PRN 30 days sennosides (Natural Senna Laxative) 17.2 mg (2 x 8.6 mg) PO DAILY PRN 30 days sitagliptin phosphate (Januvia) 100 mg PO DAILY 90 days trazodone 50 mg PO BEDTIME Tobacco use date assessed: 11/21/22 Dental Screening Dental Screen Date: 05/20/23 Did you have a dental visit in the last 12 months?: Yes Did you have a dental problem in the last 6 months where you did not have access to dental care?: No Was dental information given to patient?: Patient has dentist HPI HPI Comments History of Present Illness Details This is a 27-year-old male with diabetes mellitus type 2, hyperlipidemia, bipolar disorder, morbid obesity and moderate persistent asthma that comes today accompanied by staff member from his home for follow-up on his conditions. A1c elevated and I will add Trulicity. Lipid panel will be order and his LDL goal should be less than 70. Has bipolar disorder follow by Psychiatry well controlled with lithium. He is morbidly obese with a BMI of 50.5 and was advised to diet and exercise to reach BMI goal less than 30. He use rescue inhaler few times a month and I will add Flovent twice a day. No chest pain. [facility] Medical History (Updated 05/20/23 @ 12:11 by Kaitlin Domingo MD) ADHD Asthma Autism Bipolar disorder Bipolar disorder Blood per rectum Controlled diabetes mellitus without complication, without long-term current use of insulin Diabetes mellitus type 2, controlled, without complications Essential hypertension Lives in long term Male circumcision Nosebleed Obesity due to excess calories Psychosis Pure hypercholesterolemia Surgical History History of appendectomy Hx of circumcision (~2020) Hx of hemorrhoidectomy Family History (Updated 05/20/23 @ 11:23 by STEPHIE Sarmiento) Father No problems noted. Mother Asthma Depression Anxiety Heart problem Maternal Grandmother Diabetes Hypertension Family/Other FH: mental illness Social History Household Members: Other Household Members Other:: long term residents/staff Housing: Other Are you a primary home health care case manager to a significant other at home: No Do you presently have visiting nurse or other home services: No Alcohol intake: never Patient Tobacco Use Status: Never used Tobacco e-Cigarette/Vaping Use: Never Used Second Hand Smoke Exposure: No service: No Current occupational status: disabled Cognitive needs: No Hearing needs: Yes (hearing aide) Vision needs: Yes (glasses) Questionnaire Thrive Questionnaire Date Thrive assessed: 11/21/22 VERN-7 AMB Questionnaire VERN-7 Date VERN - 7 assessed: 01/13/23 Source: Developed by Drs. Marvel Noble, Mya Rizo, Roberto Phelps and colleagues, with an educational hafsa from [employer]. Review of Systems Const All systems reviewed & are unremarkable except as noted in HPI and below Eyes Reports no additional complaints, Denies change in vision and Denies other visual disturbances Card Denies chest pain at rest, Denies chest pain with activity, Denies edema, Denies irregular heart rhythm, Denies claudication, Reports dyspnea, Denies dyspnea on exertion, Denies orthopnea, Denies paroxysmal nocturnal dyspnea and Denies slow heart rate Resp Denies cough, Reports dyspnea, Denies dyspnea on exertion and Reports wheezing GI Denies abdominal pain, Denies change in bowel habits, Denies excessive flatus, Denies nausea and Denies vomiting Denies urinary hesitancy, Denies urinary incontinence and Denies urinary urgency Musc Denies abnormal gait, Denies atrophy, Denies deformity and Denies limited range of motion Skin/Breast Denies bleeding lesions, Denies changing lesions and Denies rash Neuro Denies abnormal gait and Denies lack of coordination Aller/Immun Reports wheezing Physical exam (Primary Care) Vital Signs: Last Vital Signs BP 122/80 05/20/23 11:23 BMI result Body Mass Index 50.5 Tobacco/Smoking Status: Tobacco use Status Tobacco use date assessed 11/21/22 05/20/23 11:25 Patient Tobacco Use Status Never used Tobacco 05/20/23 11:25 e-Cigarette/Vaping Use Never Used 05/20/23 11:25 Thrive Assessment: Date of Thrive Assessment Date Thrive assessed 11/21/22 05/20/23 11:25 Eyes General: appearance normal, both eyes and all related structures Eyelids: Yes eyelids normal Conjunctivae: conjunctivae normal Neck Neck: Yes normal visual inspection and Yes supple Resp Effort & Inspection: normal respiratory effort Auscultation: wheezes Cardio Jugular venous distension: no JVD Rate: regular rate Rhythm: regular rhythm Heart sounds: S1 normal heart sound present and S2 normal heart sound present Extrem General: Yes full ROM Results AMB Hemoglobin A1c AMB Hemoglobin A1c 7.7 % Last Edit by STEPHIE Sarmiento on 05/20/23 11:3 6 Results Reviewed Results Reviewed: Laboratory Last Values Hgb A1c (Clinic) 7.7 % (4.0-6.0) H 05/20/23 11:35 Assessment and Plan Assessment & Plan (1) Diabetes mellitus with hyperglycemia, without long-term current use of insulin: Code(s): E11.65 - Type 2 diabetes mellitus with hyperglycemia Plan: Continue metformin. Start Trulicity. A1c goal is equal or less than 7%. (2) Moderate persistent asthma: Code(s): J45.40 - Moderate persistent asthma, uncomplicated Plan: Use rescue inhaler as needed. Start Flovent twice a day. (3) Bipolar disorder: Code(s): F31.9 - Bipolar disorder, unspecified Plan: Continue lithium. Follow-up with psychiatry. (4) Morbid obesity with BMI of 50.0-59.9, adult: Code(s): E66.01 - Morbid (severe) obesity due to excess calories; Z68.43 - Body mass index [BMI] 50.0-59.9, adult Plan: Start diet and exercise. BMI goal is less than 30. (5) Hyperlipidemia LDL goal <70: Code(s): E78.5 - Hyperlipidemia, unspecified Plan: Continue statins. Repeat lipid panel. LDL goal is less than 70 Orders: Orders Complete Blood Count Auto Diff Today D64.9 - Anemia, unspecified IRON PROFILE Today D64.9 - Anemia, unspecified Vitamin D 25-OH Total Today E55.9 - Vitamin D deficiency, unspecified Vitamin B12 and Folate Today E53.8 - Deficiency of other specified B group vitamins Lipid Panel Today E78.5 - Hyperlipidemia, unspecified Microalbumin, Random (w Creat) Today E11.9 - Type 2 diabetes mellitus without complications Comprehensive [place]. Panel Fast Today E11.9 - Type 2 diabetes mellitus without complications Thyroid Stimulating Hormone Today E66.01 - Morbid (severe) obesity due to excess calories, Z68.42 - Body mass index [BMI] 45.0-49.9, adult AMB Hemoglobin A1c Today E11.9 - Type 2 diabetes mellitus without complications Medications: New fluticasone propionate 44 mcg/actuation (Flovent HFA) administer with spacer 1 puff inhalation BID 30 days 10.6 grams 4RF J45.40 - Moderate persistent asthma, uncomplicated dulaglutide (Trulicity) 0.75 mg (0.5 mL) subcut QWEEK 30 days 2.5 mL 1RF E11.9 - Type 2 diabetes mellitus without complications Coding Level of Care Code Est Pt Level 4 (86923) Diagnoses Diabetes mellitus with hyperglycemia, without long-term current use of insulin E11.65 Moderate persistent asthma J45.40 Bipolar disorder F31.9 Morbid obesity with BMI of 50.0-59.9, adult E66.01; Z68.43 Hyperlipidemia LDL goal <70 E78.5 Time Spent (min) 23
== END 2023-05-20 11:48 | disposition home or self-care (01) ==
PROVIDERS: Visit Provider Internal Medicine
DX: J45.40 Moderate persistent asthma, uncomplicated (principal); E66.01 Morbid (severe) obesity due to excess calories; Z68.43 Body mass index [BMI] 50.0-59.9, adult; E11.65 Type 2 diabetes mellitus with hyperglycemia; F31.9 Bipolar disorder, unspecified; E78.5 Hyperlipidemia, unspecified
CPT/HCPCS: 83036; 99214

== ENCOUNTER 2023-09-11 08:56 | Outpatient (AMB) | payer MEDICARE, MEDICAID, SELFPAY ==
--- NOTE | 2023-09-11 09:05 | AM.OFFVISNUR ---
Intake Intake Visit Reasons: Gerardo Injection Allergies Sulfa (Sulfonamide Antibiotics) [SULFA(SULFONAMIDE ANTIBIOTICS)] Allergy (Intermediate, Verified 05/20/23 11:35) hives trimethoprim [From BACTRIM] Allergy (Intermediate, Verified 05/20/23 11:35) Hives amphetamine [From ADDERALL] Allergy (Unknown, Verified 05/20/23 11:35) UNKNOWN dextroamphetamine [From ADDERALL] Allergy (Unknown, Verified 05/20/23 11:35) UNKNOWN lactose [LACTOSE] Allergy (Unknown, Verified 05/20/23 11:35) UNKNOWN sertraline [From ZOLOFT] Allergy (Unknown, Verified 05/20/23 11:35) UNKNOWN Office Meds Trulicity 0.75 mg/0.5 mL subcutaneous pen injector Performing Provider: Kaitlin Domingo MD Performing Location: [facility] Administered by: Mildred Monk RN on 09/11/23 09:05 Dose Route Admin Location Dispensed Lot Number Expiration Date [facility] [employer] 0.75 mg subcut LUQ 0.5 mL [id number] 03/28/25 7154-7898-75 [employer] Coding Assessment & Plan Assessment & Plan Orders: Orders AMB Dulaglutide Injection Patient Supplied Today E11.65 - Type 2 diabetes mellitus with hyperglycemia
== END 2023-09-11 09:06 | disposition home or self-care (01) ==
LOC: HO.HMGH 08:56
PROVIDERS: PCP Internal Medicine; Visit Provider Internal Medicine
DX: E11.65 Type 2 diabetes mellitus with hyperglycemia (principal)
CPT/HCPCS: 96372; J3590

== ENCOUNTER 2023-09-19 09:25 | Outpatient (AMB) | payer MEDICARE, MEDICAID, SELFPAY ==
--- NOTE | 2023-09-19 09:35 | AM.OFFVISNUR ---
Intake Intake Visit Reasons: Gerardo Injection Allergies Sulfa (Sulfonamide Antibiotics) [SULFA(SULFONAMIDE ANTIBIOTICS)] Allergy (Intermediate, Verified 05/20/23 11:35) hives trimethoprim [From BACTRIM] Allergy (Intermediate, Verified 05/20/23 11:35) Hives amphetamine [From ADDERALL] Allergy (Unknown, Verified 05/20/23 11:35) UNKNOWN dextroamphetamine [From ADDERALL] Allergy (Unknown, Verified 05/20/23 11:35) UNKNOWN lactose [LACTOSE] Allergy (Unknown, Verified 05/20/23 11:35) UNKNOWN sertraline [From ZOLOFT] Allergy (Unknown, Verified 05/20/23 11:35) UNKNOWN Office Meds Trulicity 0.75 mg/0.5 mL subcutaneous pen injector Performing Provider: Kaitlin Domingo MD Performing Location: [facility] Administered by: Mildred Monk RN on 09/19/23 09:35 Dose Route Admin Location Dispensed Lot Number Expiration Date [place] [employer] 0.75 mg subcut RLQ 0.5 mL [id number] 03/28/25 0738-4192-09 [employer] Comments: pt self administered this medication and tolerated procedure well. pt verified medication, dosage, and expiration date prior to administration. pt also wiped the area injected with alcohol wipe prior to administration. Coding Assessment & Plan Assessment & Plan Orders: Orders AMB Dulaglutide Injection Patient Supplied Today E11.65 - Type 2 diabetes mellitus with hyperglycemia
== END 2023-09-19 09:37 | disposition home or self-care (01) ==
PROVIDERS: PCP Internal Medicine; Visit Provider Internal Medicine
DX: E11.65 Type 2 diabetes mellitus with hyperglycemia (principal)
CPT/HCPCS: 96372; J3590

== ENCOUNTER 2023-11-11 13:04 | Outpatient (AMB) | payer MEDICARE, MEDICAID, SELFPAY ==
[2023-11-11 13:19] VITALS: BP 89/52; PULSE 78; O2SAT 98; BMI 48.3
--- NOTE | 2023-11-11 13:19 | MHC.OFFVIS ---
Intake Vital Signs 11/11/23 13:19 Height 5 ft 4 in Weight 281 lb 4.957 oz BMI 48.3 BP 89/52 L Blood Pressure Location Lt brachial Position Sitting Pulse 78 Pulse Oximetry (%) 98 Oxygen Delivery Method Room Air Intake Visit Reasons: 6 month fu Intake Note: Patient returns to in office visit today in 6 months follow up of dysphagia. CC: Patient reports doing better, denies having constipation, diarrhea, or blood in stool. Denies having any new GI symptoms today. Patient needs refill on all medications. 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 Accompanied by: Self / Same As Patient Allergies Sulfa (Sulfonamide Antibiotics) [SULFA(SULFONAMIDE ANTIBIOTICS)] Allergy (Intermediate, Verified 11/11/23 13:23) hives trimethoprim [From BACTRIM] Allergy (Intermediate, Verified 11/11/23 13:23) Hives amphetamine [From ADDERALL] Allergy (Unknown, Verified 11/11/23 13:23) UNKNOWN dextroamphetamine [From ADDERALL] Allergy (Unknown, Verified 11/11/23 13:23) UNKNOWN lactose [LACTOSE] Allergy (Unknown, Verified 11/11/23 13:23) UNKNOWN sertraline [From ZOLOFT] Allergy (Unknown, Verified 11/11/23 13:23) UNKNOWN HPI 6 month fu HPI Details Assessment & Plan (1) Chronic idiopathic constipation: Code(s): K59.04 - Chronic idiopathic constipation Plan: He did have an episode of rectal bleeding, but his mother bought him hemorrhoid wipes and this resolved - he says this was many week ago. Since then all has been going well, and he feels that his current does of LInzess and the senna/colace is moving his bowels well. ROV 6 mos. (2) Bleeding hemorrhoids: Code(s): K64.9 - Unspecified hemorrhoids (3) Perirectal abscess: Comment: Incised and drained by Dr. Hurtado and appears to have resolved Code(s): K61.1 - Rectal abscess Medications: Refilled docusate sodium 100 mg PO BID 60 caps 6RF K64.9 - Unspecifie d hemorrhoids hydrocortisone 2.5 % (Proctosol HC) 1 appl [place] BID PRN 30 grams 6RF hemo rrhoids K64.9 - Unspecifie d hemorrhoids linaclotide (Linze ss) 145 mcg PO QAM 30 caps 6RF polyethylene glyco l 3350 (Miralax) Mix Polyethylen e with any 4-8oz o f fluid until comp letely dissolved a nd then administer . Administer if no BM for 72 hours 1 7g in water and ma y repeat x2 in 24 hours. If no BM in 7 days contact pr escriber 17 grams PO .qhs 30 days PRN 510 gr ams 6RF constipati on K59. - Slow littlejohn sit constipation sennosides (Natura l Senna Laxative) 17.2 mg (2 x 8.6 m g) PO DAILY 30 day s PRN 60 tabs 6RF constipation K59.01 - Slow littlejohn sit constipation Discontinued lactulose Disco ntinued Reason: D octor's Order 10 grams (15 mL) P O DAILY PRN 600 mL 0RF constipation TODAY'S VISIT He continues to do well utilizing his Linzess and is various p.r.n. medications constipation. This complaining of dizziness and his blood pressure is quite low today. He was started on Trulicity about a month ago and has lost significant amount of weight and it is likely that he needs his clonidine adjusted to compensate for this in terms of hypotension. I also advised to drink lots of water. He is on lithium stone electrolyte solution would not be practical.. I urged him to go over this with his primary care provider since the may be many medications that need to be coordinated with his multiple psych medications, blood pressure medicines, and diabetes control. I wrote this out on the she had a paper for his senior living. Return office visit in 6 months. [facility] Medical History Blood per rectum Lives in senior living Psychosis Bipolar disorder Nosebleed Obesity due to excess calories Controlled diabetes mellitus without complication, without long-term current use of insulin Essential hypertension Autism Asthma ADHD Bipolar disorder Male circumcision Diabetes mellitus type 2, controlled, without complications Pure hypercholesterolemia Surgical History Hx of hemorrhoidectomy Hx of circumcision (~2020) History of appendectomy Family History Father No problems noted. Mother Asthma Depression Anxiety Heart problem Maternal Grandmother Diabetes Hypertension Family/Other FH: mental illness Social History Household Members: Other Household Members Other:: senior living residents/staff Housing: Other Are you a primary patient care associate to a significant other at home: No Do you presently have visiting nurse or other home services: No Alcohol intake: never Patient Tobacco Use Status: Never used Tobacco e-Cigarette/Vaping Use: Never Used Second Hand Smoke Exposure: No service: No Current occupational status: disabled Cognitive needs: No Hearing needs: Yes (hearing aide) Vision needs: Yes (glasses) Review of Systems Const Denies fatigue, Denies fever(s), Denies night sweats, Denies poor appetite and Reports weight loss ENT Reports Normal hearing present, Denies dental pain, Denies dysphagia, Reports dizziness, Denies hearing loss, Denies mouth pain, Denies odynophagia, Denies throat swelling, Denies tongue swelling and Reports other (Dentition adequate) Card Reports no additional complaints and Reports syncope Resp Reports no additional complaints GI Denies abdominal pain, Denies melena, Denies bloating, Denies hematochezia, Reports constipation, Denies GI cramping, Denies dysphagia, Denies excessive flatus, Denies early satiety, Denies heartburn, Denies diarrhea, Denies nausea, Denies odynophagia, Denies vomiting and Denies hematemesis Skin/Breast Denies pruritus, Denies lesions, Denies rash and Denies jaundice Neuro Reports Normal hearing present, Denies Abnormal speech present, Reports dizziness and Reports syncope Psych Reports hallucinations Endo Denies fatigue Aller/Immun Denies throat swelling and Denies tongue swelling Physical Exam Vital Signs: Last Vital Signs Pulse 78 11/11/23 13:19 BP 89/52 L 11/11/23 13:19 Pulse Ox 98 11/11/23 13:19 Oxygen Delivery Method Room Air 11/11/23 13:19 BMI result Body Mass Index 48.3 Const General: cooperative, no acute distress, well developed and well groomed Nutritional Appearance: well nourished and obese morbidly obese Orientation/consciousness: oriented to person, oriented to place and oriented to time Limitations: No language barrier and other limitations (Psychiatric limitations) HEENT Head: Yes normocephalic and Yes atraumatic Eyes General: appearance normal, both eyes and all related structures Pupils: Equal, round and reactive pupils present Neck Neck: Yes normal visual inspection and Yes no lymphadenopathy Thyroid: Thyroid normal Resp Effort & Inspection: normal respiratory effort and able to speak in complete sentences Auscultation: clear to auscultation bilaterally Cardio Rate: regular rate Rhythm: regular rhythm Heart sounds: Normal, physiologic split S2 sound present Peripheral pulses: radial pulses present and posterior tibial pulses present GI Inspection: No distended, Yes Abdominal panniculus present and Yes obesity Palpation (GI): Soft to palpation, nontender, no guarding, not rigid and No hepatosplenomegaly present Percussion: Yes normal to percussion Auscultation: normal bowel sounds Rectal Exam - Male: Yes deferred Skin General skin exam: no rashes or lesions noted, turgor normal, skin not dry, no jaundice, No spider nevi and no striae Rashes: no rashes Nails: normal Neuro General: oriented to person, oriented to place and oriented to time Cranial nerves: Yes Equal, round and reactive pupils present and Yes Normal hearing present Speech: No Abnormal speech present Extrem General: Yes normal to inspection, No clubbing, No cyanosis and No edema Psych Appearance: grossly normal and well kempt Mental Status: mental status grossly normal Speech and movement: Normal speech and movement present Affect: normal affect Attitude: cooperative Thought process: not confabulating and Other thought process findings present (Somewhat responding to internal stimulation today) Thought content: Normal thought content present Insight: Limited insight present (Psych) Judgement: Limited judgement present (Psych) Assessment & Plan Assessment & Plan (1) Chronic idiopathic constipation: Code(s): K59.04 - Chronic idiopathic constipation (2) Bleeding hemorrhoids: Code(s): K64.9 - Unspecified hemorrhoids (3) Hypotension: Code(s): I95.9 - Hypotension, unspecified Plan He continues to do well utilizing his Linzess and is various p.r.n. medications constipation. He has not had any further rectal bleeding or rectal pain. This complaining of dizziness and his blood pressure is quite low today. He was started on Trulicity about a month ago and has lost significant amount of weight and it is likely that he needs his clonidine adjusted to compensate for this in terms of hypotension. I also advised to drink lots of water. He is on lithium stone electrolyte solution would not be practical.. I urged him to go over this with his primary care provider since the may be many medications that need to be coordinated with his multiple psych medications, blood pressure medicines, and diabetes control. I wrote this out on the she had a paper for his senior living. Return office visit in 6 months. Medications: Refilled polyethylene glycol 3350 (Miralax) Mix Polyethylene with any 4-8oz of fluid until completely dissolved and then administer. Administer if no BM for 72 hours 17g in water and may repeat x2 in 24 hours. If no BM in 7 days contact prescriber 17 grams PO .qhs 30 days PRN 510 grams 6RF constipation K59.01 - Slow transit constipation sennosides (Natural Senna Laxative) 17.2 mg (2 x 8.6 mg) PO DAILY 30 days PRN 60 tabs 6RF constipation K59.01 - Slow transit constipation lactase (Lactaid Fast Act) administer with meals and/or snacks 9,000 units PO QID PRN 90 tabs 6RF lactose intolerance linaclotide (Linzess) 145 mcg PO QAM 30 caps 6RF lactulose 20 grams (30 mL) PO BID PRN 3,000 mL 3RF constipation K59.04 - Chronic idiopathic constipation Coding Level of Care Code Est Pt Level 3 (91895) Diagnoses Chronic idiopathic constipation K59.04 Bleeding hemorrhoids K64.9 Hypotension I95.9
== END 2023-11-11 14:14 | disposition home or self-care (01) ==
PROVIDERS: PCP Internal Medicine; Visit Provider Nurse Practitioner
DX: K59.04 Chronic idiopathic constipation (principal); K64.9 Unspecified hemorrhoids; I95.9 Hypotension, unspecified
CPT/HCPCS: 99213

== ENCOUNTER → 2023-11-11 13:04 | Outpatient (BNVA) | payer MEDICARE, MEDICAID, SELFPAY | PROVIDERS: PCP Internal Medicine; Visit Provider Nurse Practitioner | DX: K59.04 Chronic idiopathic constipation (principal); K64.9 Unspecified hemorrhoids; I95.9 Hypotension, unspecified | CPT/HCPCS: 99212 ==

== ENCOUNTER 2023-11-26 09:20 | Outpatient (AMB) | payer MEDICARE, MEDICAID, SELFPAY ==
[2023-11-26 09:29] VITALS: BP 112/64; BMI 47.9
--- NOTE | 2023-11-26 09:29 | MHC.PC.OV ---
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 Accompanied by: staff Allergies Sulfa (Sulfonamide Antibiotics) [SULFA(SULFONAMIDE ANTIBIOTICS)] Allergy (Intermediate, Verified 11/26/23 09:39) hives trimethoprim [From BACTRIM] Allergy (Intermediate, Verified 11/26/23 09:39) Hives amphetamine [From ADDERALL] Allergy (Unknown, Verified 11/26/23 09:39) UNKNOWN dextroamphetamine [From ADDERALL] Allergy (Unknown, Verified 11/26/23 09:39) UNKNOWN lactose [LACTOSE] Allergy (Unknown, Verified 11/26/23 09:39) UNKNOWN sertraline [From ZOLOFT] Allergy (Unknown, Verified 11/26/23 09:39) UNKNOWN Medication List - Last Reconciled 11/26/23 by Kaitlin Domingo MD acetaminophen 1,000 mg (2 x 500 mg) PO Q6H PRN 30 days albuterol sulfate 90 mcg/actuation (Ventolin HFA) 2 puffs inhalation Q6H PRN atorvastatin 20 mg PO DAILY 90 days benztropine 0.5 mg PO BID blood sugar diagnostic (Contour Next Test Strips) 1 strip miscellaneous BID clonidine HCl 0.1 mg PO TID dextromethorphan-guaifenesin 20-400 mg (Chest Congestion-Cough Relief) 1 tab PO Q6H PRN 30 days diaper,brief,adult,disposable (Briefs, Adult-Extra Large) As directed divalproex (Depakote) 1,000 mg PO BEDTIME divalproex ER 500 mg PO DAILY docusate sodium 100 mg PO BID dulaglutide (Trulicity) 0.75 mg (0.5 mL) subcut QWEEK 30 days fluoxetine 40 mg PO DAILY fluticasone propionate 50 mcg/actuation (Flonase Allergy Relief) 1 spray intranasal DAILY fluticasone propionate 44 mcg/actuation (Flovent HFA) 1 puff inhalation BID 30 days folic acid 0.8 mg PO DAILY haloperidol 10 mg PO BEDTIME haloperidol decanoate 50 mg IM Q4W hydrocortisone 2.5% (Procto-Med HC) 1 appl SC TID hydrocortisone 2.5% (Proctosol HC) 1 appl SC BID PRN ibuprofen 600 mg PO TID PRN 30 days lactase (Lactaid Fast Act) 9,000 units PO QID PRN lactulose 20 grams (30 mL) PO BID PRN lancets (TRUEplus Lancets) 1 gauge miscellaneous BID linaclotide (Linzess) 145 mcg PO QAM lisinopril 5 mg PO QAM lithium carbonate ER 450 mg PO BID metformin ER 1,000 mg (2 x 500 mg) PO DAILY 30 days montelukast 10 mg PO BEDTIME ondansetron 4 mg PO Q8H PRN 30 days polyethylene glycol 3350 (Miralax) 17 grams PO .qhs PRN 30 days sennosides (Natural Senna Laxative) 17.2 mg (2 x 8.6 mg) PO DAILY PRN 30 days sitagliptin phosphate (Januvia) 100 mg PO DAILY 90 days trazodone 50 mg PO BEDTIME Tobacco use date assessed: 11/26/23 Dental Screening Dental Screen Date: 11/26/23 Did you have a dental visit in the last 12 months?: Yes Did you have a dental problem in the last 6 months where you did not have access to dental care?: No Was dental information given to patient?: Patient has dentist HPI HPI Comments History of Present Illness Details This is a 28-year-old male with diabetes mellitus type 2, morbid obesity and bipolar disorder that comes accompanied by staff member for his physical exam. A1c within goal. I will change Trulicity to Ozempic. Last diabetic eye exam was less than a year ago. He is morbidly obese with a BMI of 47.9 was advised to diet and exercise. Has bipolar disorder follow by Psychiatry which has been stable. No chest pain or shortness of breath. [facility] Medical History Blood per rectum Lives in longterm Psychosis Bipolar disorder Nosebleed Obesity due to excess calories Controlled diabetes mellitus without complication, without long-term current use of insulin Essential hypertension Autism Asthma ADHD Bipolar disorder Male circumcision Diabetes mellitus type 2, controlled, without complications Pure hypercholesterolemia Surgical History Hx of hemorrhoidectomy Hx of circumcision (~2020) History of appendectomy Family History Father No problems noted. Mother Asthma Depression Anxiety Heart problem Maternal Grandmother Diabetes Hypertension Family/Other FH: mental illness Social History Household Members: Other Household Members Other:: longterm residents/staff Housing: Other Are you a primary healthcare consultant to a significant other at home: No Do you presently have visiting nurse or other home services: No Alcohol intake: never Patient Tobacco Use Status: Never used Tobacco e-Cigarette/Vaping Use: Never Used Second Hand Smoke Exposure: No service: No Current occupational status: disabled Cognitive needs: No Hearing needs: Yes (hearing aide) Vision needs: Yes (glasses) Questionnaire PHQ-9 Over the last 2 weeks, how often have you been bothered by any of the following problems? 1. Little interest or pleasure in doing things: not at all 2. Feeling down, depressed, or hopeless: several days 3. Trouble falling or staying asleep, or sleeping too much: not at all 4. Feeling tired or having little energy: not at all 5. Poor appetite or overeating: several days 6. Feeling bad about yourself - or that you are a failure or have let yourself or your family down: several days 7. Trouble concentrating on things, such as reading the newspaper or watching television: several days 8. Moving or speaking so slowly that other people could have noticed. Or the opposite - being so fidgety or restless that you have been moving around a lot more than usual: several days 9. Thoughts that you would be better off or of hurting yourself in some way: not at all Total score: 5 Depression Screening Interpretation: Positive Depression Screening Follow-up: Existing condition and In treatment Depression Screening Done: Yes 97282 - PHQ-9 Billing: Yes Source: Developed by Drs. Marvel Noble, Mya Rizo, Roberto Phelps and colleagues, with an educational hafsa from [employer] Thrive Questionnaire Date Thrive assessed: 11/26/23 I am a: Patient What is your living situation today?: I have a steady place to live Within the past 12 months, did the food you bought not last and you didn't have the money to get more?: Never true Within the past 12 months, did you worry whether your food would run out before you got money to buy more?: Never true Do you have trouble paying for medicines?: No Do you have trouble getting transportation to medical appointments?: No Do you have trouble paying your heating and electricity bill?: No Do you have trouble taking care of your child, family member or friend?: No Do you have trouble with day-to-day activities such as bathing, preparing meals, shopping, managing finances, etc.?: No Are you currently unemployed and looking for a job?: No Are you interested in more education?: No Please select the resources that you would like help with: None Currently or been in a relationship where the following occur: no concerns reported THRIVE Score: 0 AUDIT C Alcohol Use Questionnaire (AUDIT-C) 1. How often do you have a drink containing alcohol?: Never Total Score: 0 VERN-7 AMB Questionnaire VERN-7 Date VERN - 7 assessed: 11/26/23 Feeling nervous, anxious, or on edge: 1 = Several days Not being able to stop or control worryin = Not at all Worrying too much about different things: 0 = Not at all Trouble relaxin = Several days Being so restless that it is hard to sit still: 1 = Several days Becoming easily annoyed or irritable: 1 = Several days Feeling afraid as if something awful might happen: 0 = Not at all Total VERN-7 score (0-4 normal; 5-9 mild; 10-14 moderate; 15-21 severe): 4 Source: Developed by Drs. Marvel Noble, Mya Rizo, Roberto Phelps and colleagues, with an educational hafsa from [employer]. VERN-7 Assessment Billing VERN-7 Assessment Tool: VERN-7 Assessment 48860 Review of Systems Const All systems reviewed & are unremarkable except as noted in HPI and below Eyes Reports no additional complaints, Denies change in vision and Denies other visual disturbances Card Denies chest pain at rest, Denies chest pain with activity, Denies edema, Denies irregular heart rhythm, Denies claudication, Denies dyspnea, Denies dyspnea on exertion, Denies orthopnea, Denies paroxysmal nocturnal dyspnea and Denies slow heart rate Resp Denies cough, Denies dyspnea and Denies dyspnea on exertion GI Denies abdominal pain, Denies change in bowel habits, Denies excessive flatus, Denies nausea and Denies vomiting Denies urinary hesitancy, Denies urinary incontinence and Denies urinary urgency Musc Denies abnormal gait, Denies atrophy, Denies deformity and Denies limited range of motion Skin/Breast Denies bleeding lesions, Denies changing lesions and Denies rash Neuro Denies abnormal gait and Denies lack of coordination Physical exam (Primary Care) Vital Signs: Last Vital Signs BP 112/64 11/26/23 09:29 BMI result Body Mass Index 47.9 Tobacco/Smoking Status: Tobacco use Status Tobacco use date assessed 11/26/23 11/26/23 09:32 Patient Tobacco Use Status Never used Tobacco 11/26/23 09:32 e-Cigarette/Vaping Use Never Used 11/26/23 09:32 PHQ-9: PHQ-9 Score PHQ-9: Total score 5 11/26/23 09:57 Depression Screening Interpretation: Positive Depression Screening Follow-up: Existing condition and In treatment Thrive Assessment: Date of Thrive Assessment Date Thrive assessed 11/26/23 11/26/23 09:39 Currently or been in a relationship where the following occur: no concerns reported Const Orientation/consciousness: patient oriented x3 [facility] Head: Yes normal to inspection, Yes normocephalic and Yes atraumatic Ears: external ears normal Eyes General: appearance normal, both eyes and all related structures Eyelids: Yes eyelids normal Conjunctivae: conjunctivae normal Neck Neck: Yes normal visual inspection and Yes supple Resp Effort & Inspection: normal respiratory effort Auscultation: clear to auscultation bilaterally Cardio Jugular venous distension: no JVD Rate: regular rate Rhythm: regular rhythm Heart sounds: S1 normal heart sound present and S2 normal heart sound present GI Inspection: Yes normal to inspection Palpation (GI): Soft to palpation and nontender Auscultation: normal bowel sounds Skin General skin exam: no rashes or lesions noted Neuro General: patient oriented x3 and no focal motor deficits Extrem General: Yes full ROM Office Procedures Flu Questionnaire Does the patient have a severe egg allergy?: No Does the patient have severe life threatening allergies?: No Does the patient have a fever or illness today?: No Has the patient ever had Guillain-[place] Syndrome?: No Has the patient ever had any past reaction to a flu shot?: No Results AMB Hemoglobin A1c AMB Hemoglobin A1c 6.2 % Last Edit by STEPHIE Sarmiento on 11/26/23 09:43 Immunizations flu vacc [id number] 6mos up(PF) 60 mcg(15 mcgx4)/0.5 mL IM syringe Performing Provider: Kaitlin Domingo MD [facility] Administered by: STEPHIE Sarmiento on 11/26/23 09:57 Dose Route Admin Location Dispensed Lot Number Expiration Date [employer] Packaging Specialist 0.5 mL IM Right Deltoid 0.5 mL [id number] 05/02/24 78889-727-32 [employer] VIS Given Date VIS Provided VIS Publication Date 11/26/23 Single Vaccine 21 Eligibility Eligibility Date Funding Source Not VFC Eligible 11/26/23 Private Results Reviewed Results Reviewed: Laboratory Last Values Hgb A1c (Clinic) 6.2 % (4.0-6.0) H 11/26/23 09:42 Assessment and Plan Assessment & Plan (1) Physical exam: Onset Date: ~10/19/21 Code(s): Z00.00 - Encounter for general adult medical examination without abnormal findings Plan: Repeat in a year. (2) Bipolar disorder: Code(s): F31.9 - Bipolar disorder, unspecified Plan: Continue lithium. Follow-up with psychiatry. (3) Controlled diabetes mellitus without complication, without long-term current use of insulin: Code(s): E11.9 - Type 2 diabetes mellitus without complications Qualifiers: Diabetes mellitus type: type 2 Qualified Code(s): E11.9 - Type 2 diabetes mellitus without complications Plan: Continue metformin. A1c goal is equal or less than 7%. Discontinue Trulicity. Start Ozempic. (4) Morbid obesity with BMI of 45.0-49.9, adult: Code(s): E66.01 - Morbid (severe) obesity due to excess calories; Z68.42 - Body mass index [BMI] 45.0-49.9, adult Plan: Start diet and exercise. BMI goal is less than 30. Orders: Orders Complete Blood Count Auto Diff Today D64.9 - Anemia, unspecified IRON PROFILE Today D64.9 - Anemia, unspecified AMB Hemoglobin A1c Today E11.65 - Type 2 diabetes mellitus with hyperglycemia Influenza [id number] Immunization Today Z23 - Encounter for immunization Lipid Panel Today E78.5 - Hyperlipidemia, unspecified Comprehensive [place]. Panel Fast Today E11.65 - Type 2 diabetes mellitus with hyperglycemia Medications: New semaglutide (Ozempic) for 4 weeks 0.25 mg (0.368 mL) subcut QWEEK 28 days 1.472 mL 0RF E11.65 - Type 2 diabetes mellitus with hyperglycemia Discontinued dulaglutide (Trulicity) Discontinued Reason: Patient Completed Course 0.75 mg (0.5 mL) subcut QWEEK 30 days 2.5 mL 1RF E11.9 - Type 2 diabetes mellitus without complications Coding Level of Care Code Est Pt Prev Care 18-39y(16992) Diagnoses Physical exam Z00.00 Bipolar disorder F31.9 Controlled type 2 diabetes mellitus without complication, without long-term current use of insulin E11.9 Diabetes mellitus type: type 2 Morbid obesity with BMI of 45.0-49.9, adult E66.01; Z68.42 Additional Codes VERN-7 Assessment Billing - VERN-7 Assessment Tool: VERN-7 Assessment 29195 ([id number]) Time Spent (min) 33
== END 2023-11-26 09:58 | disposition home or self-care (01) ==
PROVIDERS: Visit Provider Internal Medicine
DX: Z00.00 Encounter for general adult medical examination without abnormal findings (principal); E11.65 Type 2 diabetes mellitus with hyperglycemia; E66.01 Morbid (severe) obesity due to excess calories; Z23 Encounter for immunization; F31.9 Bipolar disorder, unspecified; Z68.42 Body mass index [BMI] 45.0-49.9, adult
CPT/HCPCS: 83036; 90471; 90686; 99395

== ENCOUNTER 2024-03-31 15:19 | Outpatient (REF) | payer MEDICARE, MEDICAID, SELFPAY | END 2024-03-31 15:20 | disposition home or self-care (01) | LOC: HO.HAP 15:19 | PROVIDERS: Visit Provider Internal Medicine | DX: Z13.89 Encounter for screening for other disorder (principal) ==

== ENCOUNTER 2024-04-08 11:07 | Outpatient (REF) | payer MEDICARE, MEDICAID, SELFPAY | END 2024-04-08 11:08 | disposition home or self-care (01) | LOC: HO.HAP 11:07 | PROVIDERS: Visit Provider Internal Medicine | DX: Z13.89 Encounter for screening for other disorder (principal) ==

== ENCOUNTER 2024-04-14 13:13 | Outpatient (REF) | payer MEDICARE, MEDICAID, SELFPAY | END 2024-04-14 13:14 | disposition home or self-care (01) | LOC: HO.HAP 13:13 | PROVIDERS: Visit Provider Internal Medicine | DX: Z13.89 Encounter for screening for other disorder (principal) ==

== ENCOUNTER 2024-05-18 12:53 | Outpatient (AMB) | payer MEDICARE, MEDICAID, SELFPAY ==
--- NOTE | 2024-05-18 12:58 | A.OFFVIS_ITS ---
Vital Signs 05/18/24 13:04 Height 5 ft 4 in Weight 282 lb 3.067 oz BMI 48.4 BP 122/67 Blood Pressure Location Lt brachial Position Sitting Pulse 107 H Intake Visit Reasons: 6 months follow up Intake Note: Paul presents in the office as a 6 month follow up. CC: Stomach pains, rectal bleeding, constipation. He is not sure if he has some of his medications at his house. Child Care Aide Required: No Allergies Sulfa (Sulfonamide Antibiotics) [SULFA(SULFONAMIDE ANTIBIOTICS)] Allergy (Intermediate, Verified 05/18/24 13:04) hives trimethoprim [From BACTRIM] Allergy (Intermediate, Verified 05/18/24 13:04) Hives amphetamine [From ADDERALL] Allergy (Unknown, Verified 05/18/24 13:04) UNKNOWN dextroamphetamine [From ADDERALL] Allergy (Unknown, Verified 05/18/24 13:04) UNKNOWN lactose [LACTOSE] Allergy (Unknown, Verified 05/18/24 13:04) UNKNOWN sertraline [From ZOLOFT] Allergy (Unknown, Verified 05/18/24 13:04) UNKNOWN HPI HPI 6 months follow up: Details: Assessment & Plan (1) Chronic idiopathic constipation: Code(s): K59.04 - Chronic idiopathic constipation (2) Bleeding hemorrhoids: Code(s): K64.9 - Unspecified hemorrhoids (3) Hypotension: Code(s): I95.9 - Hypotension, unspecified Plan He continues to do well utilizing his Linzess and is various p.r.n. medications constipation. He has not had any further rectal bleeding or rectal pain. This complaining of dizziness and his blood pressure is quite low today. He was started on Trulicity about a month ago and has lost significant amount of weight and it is likely that he needs his clonidine adjusted to compensate for this in terms of hypotension. I also advised to drink lots of water. He is on lithium stone electrolyte solution would not be practical.. I urged him to go over this with his primary care provider since the may be many medications that need to be coordinated with his multiple psych medications, blood pressure medicines, and diabetes control. I wrote this out on the she had a paper for his senior care. Return office visit in 6 months. Medications: Refilled polyethylene glycol 3350 (Miralax) Mix Polyethylene with any 4-8oz of fluid until completely dissolved and then administer. Administer if no BM for 72 hours 17g in water and may repeat x2 in 24 hours. If no BM in 7 days contact prescriber 17 grams PO .qhs 30 days PRN 5 10 grams 6RF constipation K59.01 - Slow transit constipation sennosides (Natural Senna Laxative) 17.2 mg (2 x 8.6 mg) PO DAILY 30 days PRN 60 tabs 6RF constipation K59.01 - Slow transit constipation lactase (Lactaid Fast Act) administer with meals and/or snacks 9,000 units PO QID PRN 90 tabs 6RF lactose intolerance linaclotide (Linzess) 145 mcg PO QAM 30 caps 6RF lactulose 20 grams (30 mL) PO BID PRN 3,000 mL 3RF constipation K59.04 - Chronic idiopathic constipation TODAY'S VISIT He is here today with a new staff member Vimal Land says he is having more CIC with very hard stools multiple times a day - this hurts and he is bleeding again. We have to watch this carefully given his history of rectal fissures and infection. He is unsure if he has his LInzess and all of his prns - lactulose, miralax, senna and anusol. Wrote note to staff JESUS 4 weeks. [facility], [facility] Medical History (Updated 05/21/24 @ 09:21 by JEANNINE Kirkland) Perirectal abscess Morbid obesity with BMI of 50.0-59.9, adult Controlled diabetes mellitus without complication, without long-term current use of insulin Blood per rectum Hemorrhoids Vomiting Obesity due to excess calories Nosebleed Epistaxis Physical exam (~10/19/21) Lives in senior care Psychosis Bipolar disorder Essential hypertension Autism Asthma ADHD Bipolar disorder Male circumcision Diabetes mellitus type 2, controlled, without complications Pure hypercholesterolemia Surgical History Hx of hemorrhoidectomy Hx of circumcision (~2020) History of appendectomy Family History Father No problems noted. Mother Asthma Depression Anxiety Heart problem Maternal Grandmother Diabetes Hypertension Family/Other FH: mental illness Social History Household Members: Other Household Members Other:: senior care residents/staff Housing: Other Are you a primary care coordination manager to a significant other at home: No Do you presently have visiting nurse or other home services: No Alcohol intake: never Patient Tobacco Use Status: Never used Tobacco e-Cigarette/Vaping Use: Never Used Second Hand Smoke Exposure: No service: No Current occupational status: disabled Cognitive needs: No Hearing needs: Yes (hearing aide) Vision needs: Yes (glasses) Review of Systems Const Denies fatigue, Denies fever(s), Denies night sweats, Denies poor appetite and Denies weight loss ENT Reports Normal hearing present, Denies dental pain, Denies dysphagia, Denies hearing loss, Denies mouth pain, Denies odynophagia, Denies throat swelling, Denies tongue swelling and Reports other (Dentition adequate) Card Reports no additional complaints Resp Reports no additional complaints GI Details: Denies abdominal pain, Denies melena, Denies bloating, Reports hematochezia, Reports constipation, Denies GI cramping, Denies dysphagia, Denies excessive flatus, Denies early satiety, Denies heartburn, Denies diarrhea, Denies nausea, Denies odynophagia, Denies vomiting and Denies hematemesis Skin/Breast Denies pruritus, Denies lesions, Denies rash and Denies jaundice Neuro Reports Normal hearing present and Denies Abnormal speech present Endo Denies fatigue Aller/Immun Denies throat swelling and Denies tongue swelling Physical Exam Vital Signs: Last Vital Signs Pulse 107 H 05/18/24 13:04 BP 122/67 05/18/24 13:04 BMI result Body Mass Index 48.4 Const General: cooperative, no acute distress, well developed and well groomed Nutritional Appearance: well nourished and obese Orientation/consciousness: oriented to person, oriented to place and oriented to time Limitations: No language barrier and other limitations HEENT Head: Yes normocephalic and Yes atraumatic Eyes General: appearance normal, both eyes and all related structures Pupils: Equal, round and reactive pupils present Neck Neck: Yes normal visual inspection and Yes no lymphadenopathy Thyroid: Thyroid normal Resp Effort & Inspection: normal respiratory effort and able to speak in complete sentences Auscultation: clear to auscultation bilaterally Cardio Rate: regular rate Rhythm: regular rhythm Heart sounds: Normal, physiologic split S2 sound present Peripheral pulses: radial pulses present and posterior tibial pulses present GI Inspection: No distended, Yes Abdominal panniculus present and Yes obesity Palpation (GI): Soft to palpation, nontender, no guarding, not rigid and No hepatosplenomegaly present Percussion: Yes normal to percussion Auscultation: normal bowel sounds Rectal Exam - Male: Yes deferred Skin General skin exam: no rashes or lesions noted, turgor normal, skin not dry, no jaundice, No spider nevi and no striae Rashes: no rashes Nails: normal Neuro General: oriented to person, oriented to place and oriented to time Cranial nerves: Yes Equal, round and reactive pupils present and Yes Normal hearing present Speech: No Abnormal speech present Extrem General: Yes normal to inspection, No clubbing, No cyanosis and No edema Psych Appearance: grossly normal and well kempt Mental Status: mental status grossly normal Speech and movement: Normal speech and movement present Affect: normal affect Attitude: cooperative Thought process: Circumstantial thought process present and not confabulating Thought content: Normal thought content present Insight: Limited insight present (Psych) Judgement: Limited judgement present (Psych) Assessment & Plan Assessment & Plan (1) Chronic idiopathic constipation: Code(s): K59.04 - Chronic idiopathic constipation Category: Medical (2) Bleeding hemorrhoids: Code(s): K64.9 - Unspecified hemorrhoids Category: Medical (3) Perirectal abscess: Comment: Incised and drained by Dr. Hurtado and appears to have resolved Code(s): K61.1 - Rectal abscess Category: Medical Plan He is here today with a new staff member Vimal Land says he is having more CIC with very hard stools multiple times a day - this hurts and he is bleeding again. We have to watch this carefully given his history of rectal fissures and infection. He is unsure if he has his LInzess and all of his prns - lactulose, miralax, senna and anusol. Wrote note to staff ROV 4 weeks. Medications: Refilled linaclotide (Linzess) 145 mcg PO QAM 30 caps 6RF sennosides (Natural Senna Laxative) 17.2 mg (2 x 8.6 mg) PO DAILY PRN 60 tabs 6RF constipation 30 days K59.01 - Slow transit constipation lactulose 20 grams (30 mL) PO BID PRN 3,000 mL 3RF constipation K59.04 - Chronic idiopathic constipation polyethylene glycol 3350 (Miralax) Mix Polyethylene with any 4-8oz of fluid until completely dissolved and then administer. Administer if no BM for 72 hours 17g in water and may repeat x2 in 24 hours. If no BM in 7 days contact prescriber 17 grams PO .qhs PRN 510 grams 6RF constipation 30 days K59.01 - Slow transit constipation Coding Level of Care Code Est Pt Level 3 (84333) Diagnoses Chronic idiopathic constipation K59.04 Bleeding hemorrhoids K64.9 Perirectal abscess K61.1
[2024-05-18 13:04] VITALS: BP 122/67; PULSE 107; BMI 48.4
== END 2024-05-18 13:59 | disposition home or self-care (01) ==
PROVIDERS: PCP Internal Medicine; Visit Provider Nurse Practitioner
DX: K59.04 Chronic idiopathic constipation (principal); K64.9 Unspecified hemorrhoids; K61.1 Rectal abscess
CPT/HCPCS: 99213

== ENCOUNTER → 2024-05-18 12:53 | Outpatient (BNVA) | payer MEDICARE, MEDICAID, SELFPAY | PROVIDERS: PCP Internal Medicine; Visit Provider Nurse Practitioner | DX: K59.04 Chronic idiopathic constipation (principal); K59.01 Slow transit constipation; K61.1 Rectal abscess; K64.9 Unspecified hemorrhoids; R10.9 Unspecified abdominal pain; I95.9 Hypotension, unspecified | CPT/HCPCS: 99212 ==

== ENCOUNTER 2024-05-26 09:33 | Outpatient (AMB) | payer MEDICARE, MEDICAID, SELFPAY ==
[2024-05-26 09:38] VITALS: BP 170/88; BMI 49.4
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
== END 2024-05-26 10:07 | disposition home or self-care (01) ==
PROVIDERS: PCP Internal Medicine; Visit Provider Internal Medicine
DX: E11.69 Type 2 diabetes mellitus with other specified complication (principal); Z79.4 Long term (current) use of insulin; E66.01 Morbid (severe) obesity due to excess calories; Z68.42 Body mass index [BMI] 45.0-49.9, adult; F31.9 Bipolar disorder, unspecified; E11.65 Type 2 diabetes mellitus with hyperglycemia; E78.5 Hyperlipidemia, unspecified; I10 Essential (primary) hypertension
CPT/HCPCS: 83036; 99214; G2211

== ENCOUNTER 2024-06-16 14:15 | Outpatient (AMB) | payer MEDICARE, MEDICAID, SELFPAY ==
--- NOTE | 2024-06-16 14:16 | MHC.OFFVIS ---
Vital Signs 06/16/24 14:18 Weight 288 lb 5.834 oz BP 128/72 Blood Pressure Location Lt brachial Position Sitting Pulse 76 Intake Visit Reasons: 4 week follow up Intake Note: Patient here for 4wk f/u constipation. Reports improvement. Taking linzess, senna, miralax PRN, colace. Patient c/o: has noticed bleeding after BM. Freight Brake Operator Required: No Accompanied by: Safaa from [employer] Allergies Sulfa (Sulfonamide Antibiotics) [SULFA(SULFONAMIDE ANTIBIOTICS)] Allergy (Intermediate, Verified 06/16/24 14:20) hives trimethoprim [From BACTRIM] Allergy (Intermediate, Verified 06/16/24 14:20) Hives amphetamine [From ADDERALL] Allergy (Unknown, Verified 06/16/24 14:20) UNKNOWN dextroamphetamine [From ADDERALL] Allergy (Unknown, Verified 06/16/24 14:20) UNKNOWN lactose [LACTOSE] Allergy (Unknown, Verified 06/16/24 14:20) UNKNOWN sertraline [From ZOLOFT] Allergy (Unknown, Verified 06/16/24 14:20) UNKNOWN HPI HPI 4 week follow up: Details: Assessment & Plan (1) Chronic idiopathic constipation: Code(s): K59.04 - Chronic idiopathic constipation Category: Medical (2) Bleeding hemorrhoids: Code(s): K64.9 - Unspecified hemorrhoids Category: Medical (3) Perirectal abscess: Comment: Incised and drained by Dr. Hurtado and appears to have resolved Code(s): K61.1 - Rectal abscess Category: Medical Plan He is here today with a new staff member Vimal Land says he is having more CIC with very hard stools multiple times a day - this hurts and he is bleeding again. We have to watch this carefully given his history of rectal fissures and infection. He is unsure if he has his LInzess and all of his prns - lactulose, miralax, senna and anusol. Wrote note to staff JESUS 4 weeks. Medications: Refilled linaclotide (Linzess) 145 mcg PO QAM 30 caps 6RF sennosides (Natural Senna Laxative) 17.2 mg (2 x 8.6 mg) PO DAILY PRN 60 tabs 6RF constipation 30 days K59.01 - Slow transit constipation lactulose 20 grams (30 mL) PO BID PRN 3,000 mL 3RF constipation K59.04 - Chronic idiopathic constipation polyethylene glycol 3350 (Miralax) Mix Polyethylene with any 4-8oz of fluid until completely dissolved and then administer. Administer if no BM for 72 hours 17g in water and may repeat x2 in 24 hours. If no BM in 7 days contact prescriber 17 grams PO .qhs PRN 510 grams 6RF constipation 30 days K59.01 - Slow transit constipation TODAY'S VISIT He is here today with another staff member who is supportive He is now doing well and moving his bowels well. The only thing he has to report is that he has fallen off of using his hemorrhoid cream regularly as he is supposed to. However, he is uncertain why his bowels as suddenly returned to normal he says he is getting all of his medications. I explained that if he is not moving his bowels well we can consider increasing the Linzess but I need to make sure that there utilizing all that is available to them before I take this move. The patient and the staff member expressed understanding. Return office visit in 6 months [facility] Medical History (Updated 05/26/24 @ 10:13 by Kaitlin Domingo MD) Diabetes mellitus with hyperglycemia, without long-term current use of insulin Hypotension Perirectal abscess Morbid obesity with BMI of 50.0-59.9, adult Controlled diabetes mellitus without complication, without long-term current use of insulin Blood per rectum Hemorrhoids Vomiting Obesity due to excess calories Nosebleed Epistaxis Physical exam (~10/19/21) Lives in correction Psychosis Bipolar disorder Essential hypertension Autism Asthma ADHD Bipolar disorder Male circumcision Diabetes mellitus type 2, controlled, without complications Pure hypercholesterolemia Surgical History Hx of hemorrhoidectomy Hx of circumcision (~2020) History of appendectomy Family History Father No problems noted. Mother Asthma Depression Anxiety Heart problem Maternal Grandmother Diabetes Hypertension Family/Other FH: mental illness Social History Household Members: Other Household Members Other:: correction residents/staff Housing: Other Are you a primary foster care social worker to a significant other at home: No Do you presently have visiting nurse or other home services: No Alcohol intake: never Patient Tobacco Use Status: Never used Tobacco e-Cigarette/Vaping Use: Never Used Second Hand Smoke Exposure: No service: No Current occupational status: disabled Cognitive needs: No Hearing needs: Yes (hearing aide) Vision needs: Yes (glasses) Review of Systems Const Denies fatigue, Denies fever(s), Denies night sweats, Denies poor appetite and Denies weight loss ENT Reports Normal hearing present, Denies dental pain, Denies dysphagia, Denies hearing loss, Denies mouth pain, Denies odynophagia, Denies throat swelling, Denies tongue swelling and Reports other (Dentition adequate) Card Reports no additional complaints Resp Reports no additional complaints GI Details: Denies abdominal pain, Denies melena, Denies bloating, Denies hematochezia, Reports constipation, Denies GI cramping, Denies dysphagia, Denies excessive flatus, Denies early satiety, Denies heartburn, Denies diarrhea, Denies nausea, Denies odynophagia, Denies vomiting and Denies hematemesis Skin/Breast Denies pruritus, Denies lesions, Denies rash and Denies jaundice Neuro Reports Normal hearing present and Denies Abnormal speech present Endo Denies fatigue Aller/Immun Denies throat swelling and Denies tongue swelling Physical Exam Vital Signs: Last Vital Signs Pulse 76 06/16/24 14:18 BP 128/72 06/16/24 14:18 Const General: cooperative, no acute distress, well developed and well groomed Nutritional Appearance: well nourished and obese Orientation/consciousness: oriented to person, oriented to place and oriented to time Limitations: No language barrier and other limitations HEENT Head: Yes normocephalic and Yes atraumatic Eyes General: appearance normal, both eyes and all related structures Pupils: Equal, round and reactive pupils present Neck Neck: Yes normal visual inspection and Yes no lymphadenopathy Thyroid: Thyroid normal Resp Effort & Inspection: normal respiratory effort and able to speak in complete sentences Auscultation: clear to auscultation bilaterally Cardio Rate: regular rate Rhythm: regular rhythm Heart sounds: Normal, physiologic split S2 sound present Peripheral pulses: radial pulses present and posterior tibial pulses present GI Inspection: No distended, No Abdominal panniculus present and Yes obesity Palpation (GI): Soft to palpation, nontender, no guarding, not rigid and No hepatosplenomegaly present Percussion: Yes normal to percussion Auscultation: normal bowel sounds Rectal Exam - Male: Yes deferred Skin General skin exam: no rashes or lesions noted, turgor normal, skin not dry, no jaundice, No spider nevi and no striae Rashes: no rashes Nails: normal Neuro General: oriented to person, oriented to place and oriented to time Cranial nerves: Yes Equal, round and reactive pupils present and Yes Normal hearing present Speech: No Abnormal speech present Extrem General: Yes normal to inspection, No clubbing, No cyanosis and No edema Psych Appearance: grossly normal and well kempt Mental Status: mental status grossly normal Speech and movement: Normal speech and movement present Affect: normal affect Attitude: cooperative Thought process: Normal thought process present and not confabulating Thought content: Normal thought content present Insight: Limited insight present (Psych) Judgement: Limited judgement present (Psych) Assessment & Plan Assessment & Plan (1) Chronic idiopathic constipation: Code(s): K59.04 - Chronic idiopathic constipation Category: Medical (2) Bleeding hemorrhoids: Code(s): K64.9 - Unspecified hemorrhoids Category: Medical Plan He is here today with another staff member who is supportive He is now doing well and moving his bowels well. The only thing he has to report is that he has fallen off of using his hemorrhoid cream regularly as he is supposed to. However, he is uncertain why his bowels as suddenly returned to normal he says he is getting all of his medications. I explained that if he is not moving his bowels well we can consider increasing the Linzess but I need to make sure that there utilizing all that is available to them before I take this move. The patient and the staff member expressed understanding. Return office visit in 6 months Coding Level of Care Code Est Pt Level 3 (33109) Diagnoses Chronic idiopathic constipation K59.04 Bleeding hemorrhoids K64.9
[2024-06-16 14:18] VITALS: BP 128/72; PULSE 76
== END 2024-06-16 14:34 | disposition home or self-care (01) ==
LOC: HO.HGI 14:15
PROVIDERS: PCP Internal Medicine; Visit Provider Nurse Practitioner
DX: K59.04 Chronic idiopathic constipation (principal); K64.9 Unspecified hemorrhoids
CPT/HCPCS: 99213

== ENCOUNTER → 2024-06-16 14:15 | Outpatient (BNVA) | payer MEDICARE, MEDICAID, SELFPAY | PROVIDERS: PCP Internal Medicine; Visit Provider Nurse Practitioner | DX: K59.04 Chronic idiopathic constipation (principal); K64.9 Unspecified hemorrhoids; Z79.899 Other long term (current) drug therapy | CPT/HCPCS: 99212 ==

== ENCOUNTER 2024-12-01 10:12 | Outpatient (AMB) | payer MEDICARE, MEDICAID, SELFPAY ==
--- NOTE | 2024-12-01 10:25 | MHC.PC.OV ---
Vital Signs 12/01/24 10:26 Height 5 ft 4 in Weight 292 lb BMI 50.1 BP 130/80 Blood Pressure Location Lt brachial Position Sitting Intake Visit Reasons: Annual Exam Intake Note: Patient here for a physical exam Customer Marketing Manager Required: No Internal Medicine Nurse: Present Accompanied by: Staff Allergies Sulfa (Sulfonamide Antibiotics) [SULFA(SULFONAMIDE ANTIBIOTICS)] Allergy (Intermediate, Verified 12/01/24 10:39) hives trimethoprim [From BACTRIM] Allergy (Intermediate, Verified 12/01/24 10:39) Hives amphetamine [From ADDERALL] Allergy (Unknown, Verified 12/01/24 10:39) UNKNOWN dextroamphetamine [From ADDERALL] Allergy (Unknown, Verified 12/01/24 10:39) UNKNOWN lactose [LACTOSE] Allergy (Unknown, Verified 12/01/24 10:39) UNKNOWN sertraline [From ZOLOFT] Allergy (Unknown, Verified 12/01/24 10:39) UNKNOWN Medication List - Last Reconciled 12/01/24 by Kaitlin Domingo MD acetaminophen 1,000 mg (2 x 500 mg) PO Q6H PRN 30 days albuterol sulfate 90 mcg/actuation 2 puffs inhalation Q6H PRN 30 days albuterol sulfate 90 mcg/actuation (Ventolin HFA) 2 puffs inhalation Q6H PRN benztropine 0.5 mg PO BID blood sugar diagnostic (Contour Next Test Strips) 1 strip miscellaneous BID cetirizine (All Day Allergy (cetirizine)) 10 mg PO DAILY 90 days diaper,brief,adult,disposable (Briefs, Adult-Extra Large) As directed divalproex (Depakote) 1,000 mg PO BEDTIME divalproex ER 500 mg PO DAILY docusate sodium 100 mg PO BID dulaglutide (Trulicity) 0.75 mg (0.5 mL) subcut QWEEK 30 days fluoxetine 40 mg PO DAILY fluticasone propionate 44 mcg/actuation 1 puff inhalation BID 30 days folic acid 0.8 mg PO DAILY haloperidol 10 mg PO BEDTIME haloperidol decanoate 50 mg IM Q4W hydrocortisone 2.5% [address] [place] BID PRN ibuprofen 600 mg PO TID PRN 30 days lactase (Lactaid Fast Act) 9,000 units PO QID PRN lactulose 20 grams (30 mL) PO BID PRN lancets (TRUEplus Lancets) 1 gauge miscellaneous BID levalbuterol tartrate 45 mcg/actuation (Xopenex HFA) 2 puffs inhalation Q6H PRN 30 days linaclotide (Linzess) 145 mcg PO QAM lisinopril 40 mg PO DAILY 90 days lithium carbonate ER 450 mg PO BID metformin ER 1,000 mg (2 x 500 mg) PO DAILY 30 days montelukast 10 mg PO BEDTIME ondansetron 4 mg PO Q8H PRN 30 days polyethylene glycol 3350 (Miralax) 17 grams PO .qhs PRN 30 days sennosides (Natural Senna Laxative) 17.2 mg (2 x 8.6 mg) PO DAILY PRN 30 days trazodone 50 mg PO BEDTIME Tobacco use date assessed: 12/01/24 Dental Screening Dental Screen Date: 12/01/24 Did you have a dental visit in the last 12 months?: Yes Did you have a dental problem in the last 6 months where you did not have access to dental care?: No Was dental information given to patient?: Patient has dentist HPI HPI Comments History of Present Illness Details This is a 29-year-old male with diabetes mellitus type 2, bipolar disorder and morbid obesity that comes today for his physical exam. A1c elevated and I will increase Trulicity. Vaccines are up-to-date. Bipolar disorder follow by Psychiatry and he lives in a group home and is accompanied by staff member. He is morbidly obese with a BMI of 50.1 and was advised to do diet and exercise to reach BMI goal less than 30. Declines weight loss surgery. Complains of blood in the stools. [facility] Medical History (Updated 12/01/24 @ 12:17 by Kaitlin Domingo MD) Diabetes mellitus with hyperglycemia, without long-term current use of insulin Physical exam (~10/19/21) Morbid obesity with BMI of 45.0-49.9, adult Diabetes mellitus without complication, with long-term current use of insulin Controlled diabetes mellitus without complication, without long-term current use of insulin Hypotension Perirectal abscess Morbid obesity with BMI of 50.0-59.9, adult Blood per rectum Hemorrhoids Vomiting Obesity due to excess calories Nosebleed Epistaxis Lives in longterm Psychosis Bipolar disorder Essential hypertension Autism Asthma ADHD Bipolar disorder Male circumcision Diabetes mellitus type 2, controlled, without complications Pure hypercholesterolemia Surgical History Hx of hemorrhoidectomy Hx of circumcision (~2020) History of appendectomy Family History Father No problems noted. Mother Asthma Depression Anxiety Heart problem Maternal Grandmother Diabetes Hypertension Family/Other FH: mental illness Social History Household Members: Other Household Members Other:: longterm residents/staff Housing: Other Are you a primary health care assistant to a significant other at home: No Do you presently have visiting nurse or other home services: No Alcohol intake: never Patient Tobacco Use Status: Never used Tobacco e-Cigarette/Vaping Use: Never Used Second Hand Smoke Exposure: No service: No Current occupational status: disabled Cognitive needs: No Hearing needs: Yes (hearing aide) Vision needs: Yes (glasses) Questionnaire PHQ-9 Over the last 2 weeks, how often have you been bothered by any of the following problems? 1. Little interest or pleasure in doing things: several days 2. Feeling down, depressed, or hopeless: more than half the days 3. Trouble falling or staying asleep, or sleeping too much: more than half the days 4. Feeling tired or having little energy: more than half the days 5. Poor appetite or overeating: not at all 6. Feeling bad about yourself - or that you are a failure or have let yourself or your family down: nearly every day 7. Trouble concentrating on things, such as reading the newspaper or watching television: nearly every day 8. Moving or speaking so slowly that other people could have noticed. Or the opposite - being so fidgety or restless that you have been moving around a lot more than usual: more than half the days 9. Thoughts that you would be better off or of hurting yourself in some way: more than half the days Total score: 17 Depression Screening Interpretation: Positive Depression Screening Follow-up: Existing condition, In treatment, Community Mental Health Worker F/U and Follow-up Visit Requested Depression Screening Done: Yes 42016 - PHQ-9 Billing: Yes Source: Developed by Drs. Marvel Noble, Mya Rizo, Roberto Phelps and colleagues, with an educational hafsa from [employer]. Thrive Questionnaire Date Thrive assessed: 12/01/24 I am a: Patient What is your living situation today?: I have a place to live, but I am worried about losing it in the future Within the past 12 months, did the food you bought not last and you didn't have the money to get more?: I choose not to answer this question Within the past 12 months, did you worry whether your food would run out before you got money to buy more?: I choose not to answer this question Do you have trouble paying for medicines?: I choose not to answer this question Do you have trouble getting transportation to medical appointments?: I choose not to answer this question Do you have trouble paying your heating and electricity bill?: No Do you have trouble taking care of your child, family member or friend?: I choose not to answer this question Do you have trouble with day-to-day activities such as bathing, preparing meals, shopping, managing finances, etc.?: I choose not to answer this question Are you currently unemployed and looking for a job?: I choose not to answer this question Are you interested in more education?: I choose not to answer this question Please select the resources that you would like help with: None Currently or been in a relationship where the following occur: I choose not to answer THRIVE Score: 1 AUDIT C Alcohol Use Questionnaire (AUDIT-C) 1. How often do you have a drink containing alcohol?: Never Total Score: 0 Score Reviewed/Action Taken: No VERN-7 AMB Questionnaire VENR-7 Date VERN - 7 assessed: 12/01/24 Feeling nervous, anxious, or on edge: 3 = Nearly every day Not being able to stop or control worryin = Nearly every day Worrying too much about different things: 3 = Nearly every day Trouble relaxin = Nearly every day Being so restless that it is hard to sit still: 3 = Nearly every day Becoming easily annoyed or irritable: 1 = Several days Feeling afraid as if something awful might happen: 3 = Nearly every day Total VERN-7 score (0-4 normal; 5-9 mild; 10-14 moderate; 15-21 severe): 19 Source: Developed by Drs. Marvel Noble, Mya Rizo, Roberto Phelps and colleagues, with an educational hafsa from [employer]. VERN-7 Assessment Billing VERN-7 Assessment Tool: VERN-7 Assessment 82360 Review of Systems Const All systems reviewed & are unremarkable except as noted in HPI and below Card Denies chest pain at rest, Denies chest pain with activity, Denies edema, Denies irregular heart rhythm, Denies claudication, Denies dyspnea, Denies dyspnea on exertion, Denies orthopnea, Denies paroxysmal nocturnal dyspnea and Denies slow heart rate Resp Denies cough, Denies dyspnea and Denies dyspnea on exertion GI Denies abdominal pain, Denies change in bowel habits, Denies excessive flatus, Denies nausea and Denies vomiting Denies urinary hesitancy, Denies urinary incontinence and Denies urinary urgency Musc Denies abnormal gait, Denies atrophy, Denies deformity and Denies limited range of motion Skin/Breast Denies bleeding lesions, Denies changing lesions and Denies rash Neuro Denies abnormal gait, Denies behavioral changes, Denies confusion and Denies lack of coordination Psych Denies behavioral changes and Denies confusion Endo Denies cold intolerance Waqar/Lymph Denies easy bleeding and Denies easy bruising Aller/Immun Denies urticaria Physical exam (Primary Care) Vital Signs: Last Vital Signs BP 130/80 12/01/24 10:26 BMI result Body Mass Index 50.1 BMI Assessment/Plan discussion: High BMI High, discussed plan: lifestyle, weight reduction, dietary and physical activity Tobacco/Smoking Status: Tobacco use Status Tobacco use date assessed 12/01/24 12/01/24 10:35 Patient Tobacco Use Status Never used Tobacco 12/01/24 10:35 e-Cigarette/Vaping Use Never Used 12/01/24 10:35 PHQ-9: PHQ-9 Score PHQ-9: Total score 17 12/01/24 11:54 Depression Screening Interpretation: Positive Depression Screening Follow-up: Existing condition, In treatment, Community Mental Health Worker F/U and Follow-up Visit Requested Thrive Assessment: Date of Thrive Assessment Date Thrive assessed 12/01/24 12/01/24 10:35 Currently or been in a relationship where the following occur: I choose not to answer Const General: No confusion Orientation/consciousness: patient oriented x3 and No confusion HENMT Head: Yes normal to inspection, Yes normocephalic and Yes atraumatic Ears: external ears normal General nose exam: Normal external nose present and No nasal discharge present Face and sinus: Yes sinuses nontender Mouth: lip normal Eyes General: appearance normal, both eyes and all related structures Eyelids: Yes eyelids normal Conjunctivae: conjunctivae normal Neck Neck: Yes normal visual inspection and Yes supple Resp Effort & Inspection: normal respiratory effort Auscultation: clear to auscultation bilaterally Cardio Jugular venous distension: no JVD Rate: regular rate Rhythm: regular rhythm Heart sounds: S1 normal heart sound present and S2 normal heart sound present GI Inspection: Yes normal to inspection Palpation (GI): Soft to palpation and nontender Auscultation: normal bowel sounds Rectal Exam - Male: Yes External hemorrhoid(s) present Neuro General: patient oriented x3, no focal motor deficits and No confusion Extrem General: Yes full ROM Office Procedures Flu Questionnaire Does the patient have a severe egg allergy?: No Results AMB Hemoglobin A1c AMB Hemoglobin A1c 7.7 % Last Edit by STEPHIE Sarmiento on 12/01/24 10:38 Immunizations Fluarix Triv [id number] (PF) 45 mcg (15 mcg x 3)/0.5 mL IM syringe Performing Provider: Kaitlin Domingo MD Performing [facility] [place] [facility] Documented (not given) by: STEPHIE Sarmiento on 12/01/24 11:00 Reason Not Given: Not Given Results Reviewed Results Reviewed: Laboratory Last Values Hgb A1c (Clinic) 7.7 % (4.0-6.0) H 12/01/24 10:36 Coding Level of Care Code Est Pt Level 3 (07559) Est Pt Prev Care 18-39y(28217) Diagnoses Physical exam Z00.00 Diabetes mellitus with hyperglycemia, without long-term current use of insulin E11.65 Bipolar disorder F31.9 Bloody stools K92.1 Additional Codes VERN-7 Assessment Billing - VERN-7 Assessment Tool: VERN-7 Assessment 58456 ([id number]) PHQ-9 - 85637 - PHQ-9 Billing: Yes ([id number]) Time Spent (min) 33 Assessment & Plan Assessment & Plan (1) Physical exam: Onset Date: ~10/19/21 Code(s): Z00.00 - Encounter for general adult medical examination without abnormal findings Category: Medical (2) Diabetes mellitus with hyperglycemia, without long-term current use of insulin: Code(s): E11.65 - Type 2 diabetes mellitus with hyperglycemia Category: Medical (3) Bipolar disorder: Code(s): F31.9 - Bipolar disorder, unspecified Category: Medical (4) Bloody stools: Code(s): K92.1 - Melena Category: Medical Plan Repeat routine health examined a year. Increase Trulicity. A1c goal is equal or less than 7%. Blood pressure goal is less than 130/80. LDL goal is less than 70. For bipolar disorder follow with Psychiatry. Referred to Gastroenterology for blood in the stools. Orders: Orders IRON PROFILE Today D64.9 - Anemia, unspecified Comprehensive [place]. Panel Fast Today E11.9 - Type 2 diabetes mellitus without complications, Z79.4 - skilled nursing (current) use of insulin Influenza [id number] Immunization Today Z23 - Encounter for immunization AMB Hemoglobin A1c Today E11.9 - Type 2 diabetes mellitus without complications, Z79.4 - rodent exterminator (current) use of insulin Complete Blood Count Auto Diff Today D64.9 - Anemia, unspecified Lipid Panel Today E78.5 - Hyperlipidemia, unspecified Microalbumin, Random (w Creat) Today R80.9 - Proteinuria, unspecified Referrals Gastroenterology Referral K92.1 - Melena Medications: New dulaglutide (Trulicity) 1.5 mg (0.5 mL) subcut QWEEK 6.5 mL 3RF 90 days E11.9 - Type 2 diabetes mellitus without complications
[2024-12-01 10:26] VITALS: BP 130/80; BMI 50.1
== END 2024-12-01 10:56 | disposition home or self-care (01) ==
PROVIDERS: PCP Internal Medicine; Visit Provider Internal Medicine
DX: Z00.00 Encounter for general adult medical examination without abnormal findings (principal); E11.65 Type 2 diabetes mellitus with hyperglycemia; F31.9 Bipolar disorder, unspecified; E11.9 Type 2 diabetes mellitus without complications; Z79.4 Long term (current) use of insulin; K92.1 Melena; Z23 Encounter for immunization

== ENCOUNTER → 2024-12-01 10:12 | Outpatient (BNVA) | payer MEDICARE, MEDICAID, SELFPAY | PROVIDERS: PCP Internal Medicine; Visit Provider Internal Medicine | DX: Z00.00 Encounter for general adult medical examination without abnormal findings (principal); E11.65 Type 2 diabetes mellitus with hyperglycemia; E66.01 Morbid (severe) obesity due to excess calories; F31.9 Bipolar disorder, unspecified; K92.1 Melena; D64.9 Anemia, unspecified; E78.5 Hyperlipidemia, unspecified; R80.9 Proteinuria, unspecified; Z68.43 Body mass index [BMI] 50.0-59.9, adult | CPT/HCPCS: 83036; 96127; 99212; 99395 ==

== ENCOUNTER 2024-12-06 08:53 | Outpatient (REF) | payer MEDICARE, MEDICAID, SELFPAY ==
[2024-12-06 09:09] LABS: MANUAL DIFF FLAG NO
[2024-12-06 09:42] LABS: Basophils Percent Auto 0.4 % (0-2); Eosinophils Absolute Auto 1.1 X10*3/uL (0.0-0.4); Eosinophils Percent Auto 11.3 % (0-4); Hematocrit 36.3 % (42.0-52.0); Hemoglobin 11.9 g/dl (14.0-18.0); Imm Gran Abs Auto 0.05 X10*3/uL (0.00-0.03); Imm Gran Pct Auto 0.5 % (0.0-0.4); Lymphocytes Percent Auto 31.2 % (20-40); Mean Corpuscular HGB Conc 32.8 g/dl (31.0-36.0); Mean Corpuscular Hemoglobin 26.3 pg (27.0-33.0); Mean Corpuscular Volume 80.1 fL (80.0-98.0); Mean Platelet Volume 10.5 fL (9.4-12.4); Monocytes Absolute Auto 0.6 X10*3/uL (0.1-1.2); Monocytes Percent Auto 6.5 % (2-11); Neutrophils Absolute Auto 4.8 x10*3/uL (2.0-8.3); Neutrophils Percent Auto 50.1 % (45-73); Platelet Count 219 X10*3/uL (160-400); Red Blood Count 4.53 X10*6/uL (4.60-5.80); Red Cell Distribution Width 13.4 % (11.0-16.0); White Blood Count 9.7 X10*3/uL (4.8-10.8)
[2024-12-06 10:44] LABS: Creatinine Urine 165.79 mg/dL; Microalbum/Creatinine Ratio Ur 96.5 ug/mg cr (<30)
[2024-12-06 11:07] LABS: Alanine Aminotransferase 31 U/L (0-40); Albumin Level 4.1 g/dL (3.5-5.0); Alkaline Phosphatase 73 U/L (39-117); Anion Gap 12 (12-20); Aspartate Amino Transferase 19 U/L (5-37); Bilirubin Total 0.4 mg/dL (0.0-1.0); Blood Urea Nitrogen 11 mg/dL (9-16); Calcium 8.9 mg/dL (8.4-10.2); Carbon Dioxide 24 mmol/L (22-29); Chloride 105 mmol/L (96-108); Cholesterol 181 mg/dL (<200); Estimated Glomerular Filt Rate > 60; Glucose Fasting 152 mg/dL (60-99); HDL Cholesterol 37 mg/dL (>40); Iron 78 mcg/dL (45-160); LDL Cholesterol Calculated 117 mg/dL (<100); Percent Iron Saturation 22 % (15-50); Potassium 3.8 mmol/L (3.3-5.1); Sodium 137 mmol/L (135-145); Total Iron Binding Capacity 352 mcg/dL (228-428); Total Protein 7.5 g/dL (6.5-8.0); Triglycerides 136 mg/dL (<150); Unsaturated Iron Binding 274 ug/dL
== END 2024-12-06 08:54 | disposition home or self-care (01) ==
LOC: HO.LAB 08:53
PROVIDERS: PCP Internal Medicine; Visit Provider Internal Medicine
DX: D64.9 Anemia, unspecified (principal); E11.65 Type 2 diabetes mellitus with hyperglycemia; E78.5 Hyperlipidemia, unspecified; R80.9 Proteinuria, unspecified
CPT/HCPCS: 36415; 80053; 80061; 82043; 82570; 83540; 85025

== ENCOUNTER 2025-03-17 09:24 | Outpatient (REF) | payer MEDICARE, MEDICAID, SELFPAY ==
[2025-03-17 09:35] LABS: MANUAL DIFF FLAG NO
[2025-03-17 10:42] LABS: Basophils Absolute Auto 0.1 X10*3/uL (0.0-0.2); Basophils Percent Auto 0.9 % (0-2); Eosinophils Absolute Auto 0.7 X10*3/uL (0.0-0.4); Eosinophils Percent Auto 7.7 % (0-4); Hematocrit 33.7 % (42.0-52.0); Hemoglobin 11.1 g/dl (14.0-18.0); Imm Gran Abs Auto 0.04 X10*3/uL (0.00-0.03); Imm Gran Pct Auto 0.5 % (0.0-0.4); Lymphocytes Absolute Auto 3.1 X10*3/uL (1.2-4.9); Lymphocytes Percent Auto 35.8 % (20-40); Mean Corpuscular HGB Conc 32.9 g/dl (31.0-36.0); Mean Corpuscular Hemoglobin 26.6 pg (27.0-33.0); Mean Corpuscular Volume 80.8 fL (80.0-98.0); Mean Platelet Volume 10.8 fL (9.4-12.4); Monocytes Absolute Auto 0.6 X10*3/uL (0.1-1.2); Monocytes Percent Auto 7.4 % (2-11); Neutrophils Absolute Auto 4.1 x10*3/uL (2.0-8.3); Neutrophils Percent Auto 47.7 % (45-73); Platelet Count 195 X10*3/uL (160-400); Red Blood Count 4.17 X10*6/uL (4.60-5.80); Red Cell Distribution Width 12.9 % (11.0-16.0); White Blood Count 8.6 X10*3/uL (4.8-10.8)
[2025-03-17 11:25] LABS: Alanine Aminotransferase 31 U/L (0-40); Albumin Level 3.8 g/dL (3.5-5.0); Alkaline Phosphatase 72 U/L (39-117); Anion Gap 12 (12-20); Aspartate Amino Transferase 18 U/L (5-37); Bilirubin Total 0.3 mg/dL (0.0-1.0); Blood Urea Nitrogen 11 mg/dL (9-16); Calcium 9.3 mg/dL (8.4-10.2); Carbon Dioxide 25 mmol/L (22-29); Chloride 105 mmol/L (96-108); Cholesterol 192 mg/dL (<200); Estimated Glomerular Filt Rate > 60; Glucose Fasting 145 mg/dL (60-99); HDL Cholesterol 37 mg/dL (>40); Iron 80 mcg/dL (45-160); LDL Cholesterol Calculated 125 mg/dL (<100); Percent Iron Saturation 25 % (15-50); Potassium 4.2 mmol/L (3.3-5.1); Sodium 138 mmol/L (135-145); Total Iron Binding Capacity 315 mcg/dL (228-428); Total Protein 6.8 g/dL (6.5-8.0); Triglycerides 151 mg/dL (<150); Unsaturated Iron Binding 235 ug/dL
[2025-03-17 12:10] LABS: Creatinine Urine 215.86 mg/dL; Microalbum/Creatinine Ratio Ur 44.9 ug/mg cr (<30)
== END 2025-03-17 09:25 | disposition home or self-care (01) ==
LOC: HO.LAB 09:24
PROVIDERS: PCP Internal Medicine; Visit Provider Internal Medicine
DX: E11.9 Type 2 diabetes mellitus without complications (principal); Z79.4 Long term (current) use of insulin; E78.5 Hyperlipidemia, unspecified; D64.9 Anemia, unspecified
CPT/HCPCS: 36415; 80053; 80061; 82043; 82570; 83540; 85025

== ENCOUNTER 2025-08-10 15:56 | Outpatient (AMB) | payer MEDICARE, MEDICAID, SELFPAY ==
--- NOTE | 2025-08-10 16:08 | MHC.OFFVIS ---
Vital Signs 08/10/25 16:09 Height 5 ft 4 in Weight 288 lb 12.889 oz BMI 49.6 BP 152/96 H Blood Pressure Location Lt brachial Position Sitting Pulse 92 Intake Visit Reasons: cic, hemmerhoids Intake Note: Patient in office today in follow up of CIC and hemorrhoids. CC: Patient denies having any constipation, diarrhea, N/V, GERD or abd pain. He states that he is doing very good. 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 Accompanied by: custodial staff Allergies Sulfa (Sulfonamide Antibiotics) (SULFA(SULFONAMIDE ANTIBIOTICS)) Allergy (Intermediate, Verified 08/10/25 16:18) hives trimethoprim (From BACTRIM) Allergy (Intermediate, Verified 08/10/25 16:18) Hives amphetamine (From ADDERALL) Allergy (Unknown, Verified 08/10/25 16:18) UNKNOWN dextroamphetamine (From ADDERALL) Allergy (Unknown, Verified 08/10/25 16:18) UNKNOWN lactose (LACTOSE) Allergy (Unknown, Verified 08/10/25 16:18) UNKNOWN sertraline (From ZOLOFT) Allergy (Unknown, Verified 08/10/25 16:18) UNKNOWN HPI HPI cic, hemmerhoids: Details: Assessment & Plan (1) Chronic idiopathic constipation: Code(s): K59.04 - Chronic idiopathic constipation Category: Medical (2) Bleeding hemorrhoids: Code(s): K64.9 - Unspecified hemorrhoids Category: Medical Plan He is here today with another staff member who is supportive He is now doing well and moving his bowels well. The only thing he has to report is that he has fallen off of using his hemorrhoid cream regularly as he is supposed to. However, he is uncertain why his bowels as suddenly returned to normal he says he is getting all of his medications. I explained that if he is not moving his bowels well we can consider increasing the Linzess but I need to make sure that there utilizing all that is available to them before I take this move. The patient and the staff member expressed understanding. Return office visit in 6 months TODAY'S VISIT PFSH Medical History (Updated 08/10/25 @ 16:19 by JEANNINE Kirkland) Bloody stools Diabetes mellitus with hyperglycemia, without long-term current use of insulin Physical exam (~10/19/21) Morbid obesity with BMI of 45.0-49.9, adult Diabetes mellitus without complication, with long-term current use of insulin Controlled diabetes mellitus without complication, without long-term current use of insulin Hypotension Perirectal abscess Morbid obesity with BMI of 50.0-59.9, adult Blood per rectum Hemorrhoids Vomiting Obesity due to excess calories Nosebleed Epistaxis Lives in custodial Psychosis Bipolar disorder Essential hypertension Autism Asthma ADHD Bipolar disorder Male circumcision Diabetes mellitus type 2, controlled, without complications Pure hypercholesterolemia Surgical History Hx of hemorrhoidectomy Hx of circumcision (~2020) History of appendectomy Family History Father No problems noted. Mother Asthma Depression Anxiety Heart problem Maternal Grandmother Diabetes Hypertension Family/Other FH: mental illness Social History Household Members: Other Household Members Other:: custodial residents/staff Housing: Other Are you a primary managed care liaison to a significant other at home: No Do you presently have visiting nurse or other home services: No Alcohol intake: never Patient Tobacco Use Status: Never used Tobacco e-Cigarette/Vaping Use: Never Used Second Hand Smoke Exposure: No service: No Current occupational status: disabled Cognitive needs: No Hearing needs: Yes (hearing aide) Vision needs: Yes (glasses) Review of Systems Const Denies fatigue, Denies fever(s), Denies night sweats, Denies poor appetite and Denies weight loss ENT Reports Normal hearing present, Denies dental pain, Denies dysphagia, Denies hearing loss, Denies mouth pain, Denies odynophagia, Denies throat swelling, Denies tongue swelling and Reports other (Dentition adequate) Card Reports no additional complaints Resp Reports no additional complaints GI Details: Denies abdominal pain, Denies melena, Denies bloating, Denies hematochezia, Reports constipation, Denies GI cramping, Denies dysphagia, Denies excessive flatus, Denies early satiety, Reports heartburn, Denies diarrhea, Denies nausea, Denies odynophagia, Denies vomiting and Denies hematemesis Skin/Breast Denies pruritus, Denies lesions, Denies rash and Denies jaundice Neuro Reports Normal hearing present and Denies Abnormal speech present Endo Denies fatigue Aller/Immun Denies throat swelling and Denies tongue swelling Physical Exam Vital Signs: Last Vital Signs Pulse 92 08/10/25 16:09 BP 152/96 H 08/10/25 16:09 BMI result Body Mass Index 49.6 Const General: cooperative, no acute distress, well developed and well groomed Nutritional Appearance: well nourished and obese Orientation/consciousness: oriented to person, oriented to place and oriented to time Limitations: No language barrier and other limitations HEENT Head: Yes normocephalic and Yes atraumatic Eyes General: appearance normal, both eyes and all related structures Pupils: Equal, round and reactive pupils present Neck Neck: Yes normal visual inspection and Yes no lymphadenopathy Thyroid: Thyroid normal Resp Effort & Inspection: normal respiratory effort and able to speak in complete sentences Auscultation: clear to auscultation bilaterally Cardio Rate: regular rate Rhythm: regular rhythm Heart sounds: Normal, physiologic split S2 sound present Peripheral pulses: radial pulses present and posterior tibial pulses present GI Inspection: No distended, Yes Abdominal panniculus present and Yes obesity Palpation (GI): Soft to palpation, nontender, no guarding, not rigid and No hepatosplenomegaly present Percussion: Yes normal to percussion Auscultation: normal bowel sounds Rectal Exam - Male: Yes deferred Skin General skin exam: no rashes or lesions noted, turgor normal, skin not dry, no jaundice, No spider nevi and no striae Rashes: no rashes Nails: normal Neuro General: oriented to person, oriented to place and oriented to time Cranial nerves: Yes Equal, round and reactive pupils present and Yes Normal hearing present Speech: No Abnormal speech present Extrem General: Yes normal to inspection, No clubbing, No cyanosis and No edema Psych Appearance: grossly normal and well kempt Mental Status: mental status grossly normal Speech and movement: Normal speech and movement present Affect: normal affect Attitude: cooperative Thought process: not confabulating Thought content: Normal thought content present Insight: Limited insight present (Psych) Judgement: Limited judgement present (Psych) Assessment & Plan Assessment & Plan (1) Chronic idiopathic constipation: Code(s): K59.04 - Chronic idiopathic constipation Category: Medical (2) Bleeding hemorrhoids: Code(s): K64.9 - Unspecified hemorrhoids Category: Medical Plan His current GI regimen consists of Colace, Linzess 145 micro g, Lactaid tablets, lactulose, and a variety of other [id number] laxatives for his custodial bowel regimen. He continues to do very well and has had no recurrence of his rectal abscess that was so bothersome to him in the past. Return office visit in 6 months Coding Level of Care Code Est Pt Level 3 (19238) Diagnoses Chronic idiopathic constipation K59.04 Bleeding hemorrhoids K64.9
[2025-08-10 16:09] VITALS: BP 152/96; PULSE 92; BMI 49.6
== END 2025-08-10 16:29 | disposition home or self-care (01) ==
LOC: HO.HGI 15:57
PROVIDERS: PCP Internal Medicine; Visit Provider Nurse Practitioner
DX: K59.04 Chronic idiopathic constipation (principal); K64.9 Unspecified hemorrhoids
CPT/HCPCS: 99213

== ENCOUNTER → 2025-08-10 15:56 | Outpatient (BNVA) | payer MEDICARE, MEDICAID, SELFPAY | PROVIDERS: PCP Internal Medicine; Visit Provider Nurse Practitioner | DX: K59.04 Chronic idiopathic constipation (principal); K64.9 Unspecified hemorrhoids; E66.01 Morbid (severe) obesity due to excess calories; Z68.42 Body mass index [BMI] 45.0-49.9, adult; I10 Essential (primary) hypertension | CPT/HCPCS: 99212 ==

== ENCOUNTER 2025-09-21 15:07 | Outpatient (AMB) | payer MEDICARE, MEDICAID, SELFPAY ==
--- NOTE | 2025-09-21 15:08 | A.OFFVIS_ITS ---
Vital Signs 09/21/25 15:09 Height 5 ft 4 in Weight 284 lb 6.341 oz BMI 48.8 BP 130/80 Blood Pressure Location Rt brachial Position Sitting Pulse 86 Pulse Source Pulse Oximeter Pulse Oximetry (%) 96 Oxygen Delivery Method Room Air Intake Visit Reasons: Type 2 diabetes mellitus with unspecified complica Intake Note: NEW Patient presents today to establish treatment for Type 2 Diabetes Mellitus: Last Diabetic eye exam was on: DUE Last Podiatry exam was on: Patient does not see a Supervisor Metalizing Most recent HbA1c: 9.4%, 09/21/2025 Random Glucose: 153 mg/dL Presentation Manager Required: No Accompanied by: Staff [facility] Allergies Sulfa (Sulfonamide Antibiotics) (SULFA(SULFONAMIDE ANTIBIOTICS)) Allergy (Intermediate, Verified 09/21/25 15:24) hives trimethoprim (From BACTRIM) Allergy (Intermediate, Verified 09/21/25 15:24) Hives amphetamine (From ADDERALL) Allergy (Unknown, Verified 09/21/25 15:24) UNKNOWN dextroamphetamine (From ADDERALL) Allergy (Unknown, Verified 09/21/25 15:24) UNKNOWN lactose (LACTOSE) Allergy (Unknown, Verified 09/21/25 15:24) UNKNOWN sertraline (From ZOLOFT) Allergy (Unknown, Verified 09/21/25 15:24) UNKNOWN HPI Comments Details: Patient is 29 yo male with DM type 2 presenting for diabetes management. He hasn't been seen in endocrine at [facility] since 2021. Past Medical history includes: autism spectrum, bipolar, ADHD, asthma, constipation, hemorrhoids Diagnosed October 2017 He is accompanied by a member of his correction. Diabetes medications: Metformin 1000 (2x500) once a day Trulicity 3mg weekly A1C today 9.4% BG testing-has own meter. Done by facility. Not brought today. Medications are administered On statin On SKYLAR Denies neuropathy Activity: Minimal Diet: three meals and once snack. Meals are prepared by facility He would like to see the hide or skin buffer. ROS CONSTITUTIONAL: Denies weight loss, fever and chills. HEENT: Denies changes in vision and hearing. RESPIRATORY: Denies SOB and cough. CV: Denies palpitations and CP GI: Denies abdominal pain, nausea, vomiting and diarrhea. : Denies dysuria and urinary frequency. MSK: Denies new myalgia and joint pain. SKIN: Denies rash and pruritus. NEUROLOGICAL: Denies headache PSYCHIATRIC: Denies recent changes in mood. PHYSICAL EXAM: GENERAL: Alert and oriented x 3. NAD EYES: EOMI. Anicteric. HENT: Moist mucous membranes. LUNGS: Clear to auscultation bilaterally. CARDIOVASCULAR: Regular rate and rhythm. ABDOMEN: Soft, non-tender +bs EXTREMITIES: No edema. Non-tender. SKIN: No rashes or lesions. Warm. NEUROLOGIC: No focal neurological deficits. CN II-XII grossly intact PSYCHIATRIC: Cooperative. Talkative ON LICENSE OF [facility] Medical History (Updated 09/22/25 @ 13:44 by Clementine Lowe MD) Bloody stools Diabetes mellitus with hyperglycemia, without long-term current use of insulin Physical exam (~10/19/21) Morbid obesity with BMI of 45.0-49.9, adult Diabetes mellitus without complication, with long-term current use of insulin Controlled diabetes mellitus without complication, without long-term current use of insulin Hypotension Perirectal abscess Morbid obesity with BMI of 50.0-59.9, adult Blood per rectum Hemorrhoids Vomiting Obesity due to excess calories Nosebleed Epistaxis Lives in correction Psychosis Bipolar disorder Essential hypertension Autism Asthma ADHD Bipolar disorder Male circumcision Diabetes mellitus type 2, controlled, without complications Pure hypercholesterolemia Surgical History Hx of hemorrhoidectomy Hx of circumcision (~2020) History of appendectomy Family History Father No problems noted. Mother Asthma Depression Anxiety Heart problem Maternal Grandmother Diabetes Hypertension Family/Other FH: mental illness Social History Household Members: Other Household Members Other:: correction residents/staff Housing: Other Are you a primary care transition mgr to a significant other at home: No Do you presently have visiting nurse or other home services: No Alcohol intake: never Patient Tobacco Use Status: Never used Tobacco e-Cigarette/Vaping Use: Never Used Second Hand Smoke Exposure: No service: No Current occupational status: disabled Cognitive needs: No Hearing needs: Yes (hearing aide) Vision needs: Yes (glasses) Physical Exam Vital Signs: Last Vital Signs Pulse 86 09/21/25 15:09 BP 130/80 09/21/25 15:09 Pulse Ox 96 09/21/25 15:09 Oxygen Delivery Method Room Air 09/21/25 15:09 BMI result Body Mass Index 48.8 Results AMB Hemoglobin A1c AMB Hemoglobin A1c 9.4 % Last Edit by STEPHIE Araya on 09/21/25 15:24 Results Reviewed Results Reviewed: Laboratory Last Values Glucose (Clinic) 153 mg/dL (60-115) H 09/21/25 15:13 Hgb A1c (Clinic) 9.4 % (4.0-6.0) H 09/21/25 15:23 Assessment & Plan Assessment & Plan (1) Diabetes mellitus with hyperglycemia, without long-term current use of insulin: Code(s): E11.65 - Type 2 diabetes mellitus with hyperglycemia Category: Medical Qualifiers: Diabetes mellitus type: type 2 Qualified Code(s): E11.65 - Type 2 diab etes mellitus with hyperglycemia (2) Bipolar disorder: Code(s): F31.9 - Bipolar disorder, unspecified Category: Medical Qualifiers: Active/Remission status: remission status unspecified Qualified Code(s): F31.9 - Bipolar disorder, unspecified Plan Type 2 diabetes uncontrolled Continue trulicity. Consider increase to 4.5mg Increase metformin to 2000mg daily Start glipizide 10mg daily Treat hypoglycemia by rules of 15s Improve diet-referral to nutrition Log glucose readings, bring meter to visit Follow up in one month or sooner as needed Orders: Orders AMB Hemoglobin A1c 09/21/25 E11.65 - Type 2 diabetes mellitus with hyperglycemia Referrals Nutrition/Dietitian Referral E11.65 - Type 2 diabetes mellitus with hyperglycemia Medications: New glipizide ER 10 mg PO DAILY 90 tabs 3RF Changed From metformin ER 1,000 mg (2 x 500 mg) PO DAILY 30 days 60 tabs 1RF To metformin ER 1,000 mg (2 x 500 mg) PO BID 360 tabs 3RF 90 days Coding Level of Care Code Complex visit Add On G2211 Diagnoses Type 2 diabetes mellitus with hyperglycemia, without long-term current use of insulin E11.65 Diabetes mellitus type: type 2 Bipolar affective disorder, remission status unspecified F31.9 Active/Remission status: remission status unspecified
[2025-09-21 15:09] VITALS: BP 130/80; PULSE 86; O2SAT 96; BMI 48.8
[2025-09-21 15:16] LABS: Glucose, Whole Blood 153 mg/dL (60-115)
== END 2025-09-21 15:41 | disposition home or self-care (01) ==
LOC: HO.ENCR 15:07
PROVIDERS: Visit Provider Internal Medicine
DX: E11.65 Type 2 diabetes mellitus with hyperglycemia (principal); F31.9 Bipolar disorder, unspecified

== ENCOUNTER → 2025-09-21 15:07 | Outpatient (BNVA) | payer MEDICARE, MEDICAID, SELFPAY | PROVIDERS: Visit Provider Internal Medicine | DX: E11.65 Type 2 diabetes mellitus with hyperglycemia (principal); F31.9 Bipolar disorder, unspecified; Z79.4 Long term (current) use of insulin | CPT/HCPCS: 82947; 83036; 99212 ==